=== PATIENT | male | born 1985 | race African-American/Black ===

== ENCOUNTER 2017-12-23 12:56 | Emergency (ER) | payer OTHER ==
[~2017-12-23] VITALS: Ht 188 cm; Wt 122.5 kg
[~2017-12-23 12:56] MED LIST: ARIP1TAB9; NORPTMEDS CO; TRAZ100T2
[2017-12-23 13:10] VITALS: BP 122/84
== END 2017-12-23 14:53 | disposition left against medical advice (07) ==
LOC: ER 12:56
DX: M79.641 Pain in right hand (principal); Z53.21 Procedure and treatment not carried out due to patient leaving prior to being seen by health care provider

== ENCOUNTER 2020-10-18 14:54 | Emergency (ER) | payer OTHER, MEDICAID ==
[~2020-10-18] VITALS: Ht 188 cm; Wt 113.4 kg
[~2020-10-18 14:54] MED LIST changes: -TRAZ100T2; +TRAZ100T3
[2020-10-18 18:50] VITALS: BP 107/65
== END 2020-10-18 20:24 | disposition home or self-care (01) ==
LOC: ER 14:54
DX: L02.412 Cutaneous abscess of left axilla (principal); L02.411 Cutaneous abscess of right axilla; E66.9 Obesity, unspecified; F17.210 Nicotine dependence, cigarettes, uncomplicated; Z68.32 Body mass index [BMI] 32.0-32.9, adult; Z79.899 Other long term (current) drug therapy

== ENCOUNTER 2021-01-10 18:21 | Emergency (ER) | payer OTHER, MEDICAID ==
[~2021-01-10] VITALS: Ht 188 cm; Wt 172.4 kg
[2021-01-10 18:35] VITALS: BP 143/88
[2021-01-10 19:36] LABS: BUN/Creatinine Ratio 11.4; Calcium 7.9 mg/dL (8.5-10.1); Potassium 4.1 mmol/L (3.5-5.1)
== END 2021-01-10 19:46 | disposition home or self-care (01) ==
LOC: ER 18:22
DX: F20.9 Schizophrenia, unspecified (principal); F41.9 Anxiety disorder, unspecified; F32.9 Major depressive disorder, single episode, unspecified; F17.210 Nicotine dependence, cigarettes, uncomplicated; F12.10 Cannabis abuse, uncomplicated; F15.10 Other stimulant abuse, uncomplicated
CPT/HCPCS: 36415; 80048

== ENCOUNTER 2022-08-08 15:22 | Inpatient (IN) | payer OTHER, MEDICAID ==
[~2022-08-08] VITALS: Ht 188 cm; Wt 124.7 kg
[2022-08-08 16:35] LABS: Basophils # (auto) 0.1 10 ^3/uL (0-0.2); Basophils % (auto) 0.6 % (0.0-2.0); Eosinophils # (auto) 0.3 10 ^3/uL (0-0.8); Eosinophils % (auto) 2.6 % (0.0-7.0); Hematocrit 30.2 % (41.0-53.0); Hemoglobin 9.4 g/dL (13.5-17.5); Lymphocytes # (auto) 2.1 10 ^3/uL (0.4-5.4); Mean Corpuscular Hemoglobin 21.9 pg (28.0-32.0); Mean Corpuscular Hgb Conc. 31.2 g/dL (32.0-36.0); Mean Corpuscular Volume 70.1 fL (80.0-100.0); Monocytes # (auto) 0.9 10 ^3/uL (0-1.3); Monocytes % (auto) 9.1 % (0.0-12.0); Neutrophils # (auto) 6.3 10 ^3/uL (1.6-8.6); Neutrophils % (auto) 65.7 % (37.0-80.0); Red Cell Distribution Width 18.9 % (11.8-14.3); White Blood Cell 9.6 10^3/uL (4.4-10.8)
[2022-08-08 16:38] LABS: INR 1.14 (0.9-1.15); Partial Thromboplastin Time 29.3 sec (24.6-33.4)
[2022-08-08 16:43] LABS: Albumin 2.2 g/dL (3.4-5.0); Calcium 8.3 mg/dL (8.5-10.1); Magnesium 2.1 mg/dL (1.6-2.6)
[2022-08-08 16:47] LABS: BUN/Creatinine Ratio 9.2 (10.0-20.0); Bilirubin, Total 0.2 mg/dL (0.2-1.0); Total Protein 8.8 g/dL (6.4-8.2)
[2022-08-08] MEDS ORDERED: HYDROcodone-ACET 5/325MG TAB PO ONE (19:00)
[2022-08-08] MEDS ORDERED: SODIUM CHLORIDE 0.9% 1,000 ML IV ONE (19:00)
[2022-08-08 20:11] LABS: Urine Bacteria NONE SEEN /hpf (None Seen); Urine Blood Negative /uL (Negative); Urine Mucus FEW (None Seen); Urine Specific Gravity 1.024 (1.001-1.035); Urine WBC 5 /hpf (0 - 3)
[2022-08-08 20:22] LABS: Amphetamine Screen, Urine NEGATIVE (NEGATIVE); Barbiturate Scree,Urine NEGATIVE (NEGATIVE); Benzodiazephine Screen, Urine NEGATIVE (NEGATIVE); Cannabinoid Screen, Urine NEGATIVE (NEGATIVE); Cocaine Screen, Urine NEGATIVE (NEGATIVE); Phencyclidine Screen, Urine NEGATIVE (NEGATIVE)
[2022-08-08 20:30] LABS: Opiate Scree,Urine NEGATIVE (NEGATIVE)
[2022-08-08] MEDS ORDERED: DEXTROSE (50%) 50ML SYRG IV PRN (21:00)
[2022-08-08] MEDS ORDERED: MORPHINE SULFATE INJ 2 MG/ml SYRG IV PRN (21:00)
[2022-08-08] MEDS ORDERED: ACETAMINOPHEN 325 MG TAB PO PRN (21:00)
[2022-08-08] MEDS ORDERED: NITROGLYCERIN 0.4 MG SL TAB SL PRN (21:00)
[2022-08-08] MEDS ORDERED: ONDANSETRON HCL 4 MG/2 ML VIAL IV PRN (21:00)
[2022-08-08] MEDS ORDERED: TEMAZEPAM 15 MG CAP PO PRN (21:00)
[2022-08-08] MEDS: ACCU-CHEK COMFORT CURVE STRIP VI SCH (22:26)
[2022-08-08] MEDS: lamoTRIgine 25 MG TAB PO SCH (22:34)
[2022-08-08] MEDS: InsuLIN REG 1unit/0.01ml Soln (100units/ml) SC SCH (22:34)
[2022-08-08] MEDS: ATORVASTATIN 20 MG TAB PO SCH (22:34)
[2022-08-08 22:38] LABS: Cholesterol 88 mg/dL (< 200); HDL Cholesterol 40 mg/dL (40-59); LDL Cholesterol 47 mg/dL (< 100); Triglycerides 52 mg/dL (< 150)
[2022-08-09] MEDS: cefTRIAXone 1GM/50ML D5W 50 ML IV SCH ×3 (04:28→09:06)
[2022-08-09] MEDS: CLINDAMYCIN 600MG IV 50 ML IV SCH ×2 (05:11→06:00)
[2022-08-09 06:44] LABS: BUN/Creatinine Ratio 11.5 (10.0-20.0); Calcium 8.3 mg/dL (8.5-10.1); Potassium 3.8 mmol/L (3.5-5.1)
[2022-08-09] MEDS: ACCU-CHEK COMFORT CURVE STRIP VI SCH ×4 (06:45→21:30)
[2022-08-09] MEDS: InsuLIN REG 1unit/0.01ml Soln (100units/ml) SC SCH ×4 (06:50→21:39)
[2022-08-09] MEDS ORDERED: IOHEXOL 350 MG/ML 100ML IJ ONE (08:05)
[2022-08-09 09:05] VITALS: BP 107/71
[2022-08-09] MEDS: ASPirin 81 mg TAB PO SCH (09:06)
[2022-08-09] MEDS: lamoTRIgine 25 MG TAB PO SCH ×2 (09:06→21:29)
[2022-08-09] MEDS ORDERED: INFLUENZA QUAD 2022-2023 0.5 ML SYRG IM ONE (11:00)
[2022-08-09] MEDS ORDERED: PNEUMOCOCCAL VACC POLYS 25 MCG/0.5 ML VIAL IM ONE (11:00)
[2022-08-09 13:00] VITALS: BP 120/78
[2022-08-09] MEDS ORDERED: VANCOMYCIN PER PHARMACY 0 MG IV SCH (13:15)
[2022-08-09] MEDS ORDERED: VANCOMYCIN 1GM/250ML 250 ML IV ONE ×2 (14:00→16:45)
[2022-08-09 17:00] VITALS: BP 101/71
[2022-08-09] MEDS: ATORVASTATIN 20 MG TAB PO SCH (21:29)
[2022-08-09 22:00] VITALS: BP 108/61
[2022-08-09] MEDS: VANCOMYCIN 1GM/250ML 250 ML IV SCH (23:06)
[2022-08-10 05:00] VITALS: BP 101/52
[2022-08-10] MEDS: VANCOMYCIN 1GM/250ML 250 ML IV SCH ×3 (05:00→16:32)
[2022-08-10] MEDS: ACCU-CHEK COMFORT CURVE STRIP VI SCH ×4 (06:18→21:18)
[2022-08-10] MEDS: InsuLIN REG 1unit/0.01ml Soln (100units/ml) SC SCH ×4 (06:19→21:11)
[2022-08-10 09:00] VITALS: BP 118/85
[2022-08-10] MEDS: lamoTRIgine 25 MG TAB PO SCH ×2 (09:47→21:13)
[2022-08-10] MEDS: cefTRIAXone 1GM/50ML D5W 50 ML IV SCH (09:47)
[2022-08-10] MEDS: ASPirin 81 mg TAB PO SCH (09:47)
[2022-08-10 13:00] VITALS: BP 116/65
[2022-08-10] MEDS ORDERED: traZODone HCL 50 MG TAB PO ONE (13:15)
[2022-08-10 17:00] VITALS: BP 110/76
[2022-08-10] MEDS: ATORVASTATIN 20 MG TAB PO SCH (21:14)
[2022-08-10] MEDS ORDERED: traZODone HCL 50 MG TAB PO SCH (22:00)
[2022-08-10 22:33] VITALS: BP_SYST 101; BP_SYST 142; BP_DIAS 58; BP_DIAS 99
[2022-08-11] MEDS: VANCOMYCIN 1GM/250ML 250 ML IV SCH ×2 (00:13→05:41)
[2022-08-11 05:00] VITALS: BP 128/72
[2022-08-11] MEDS: ACCU-CHEK COMFORT CURVE STRIP VI SCH (06:11)
[2022-08-11] MEDS: InsuLIN REG 1unit/0.01ml Soln (100units/ml) SC SCH (06:13)
== END 2022-08-11 08:58 | disposition left against medical advice (07) | DRG 603 ==
LOC: ER 15:22 → EDBD 15:22 → TELE 21:01 → TELE-WESTW 08-09 08:48
PROVIDERS: ADMIT Nurse Practitioner; ATTEND Family Medicine
DX: L03.112 Cellulitis of left axilla (principal); E87.1 Hypo-osmolality and hyponatremia; N39.0 Urinary tract infection, site not specified; L03.111 Cellulitis of right axilla; D64.9 Anemia, unspecified; E83.51 Hypocalcemia; F17.210 Nicotine dependence, cigarettes, uncomplicated; F20.9 Schizophrenia, unspecified; D63.8 Anemia in other chronic diseases classified elsewhere; E11.65 Type 2 diabetes mellitus with hyperglycemia; F32.A Depression, unspecified; F41.9 Anxiety disorder, unspecified; L02.92 Furuncle, unspecified; R00.0 Tachycardia, unspecified; Z53.29 Procedure and treatment not carried out because of patient's decision for other reasons; R79.89 Other specified abnormal findings of blood chemistry; S41.101A Unspecified open wound of right upper arm, initial encounter; X58.XXXA Exposure to other specified factors, initial encounter; Z79.899 Other long term (current) drug therapy; Z83.3 Family history of diabetes mellitus; Y93.89 Activity, other specified; Y92.89 Other specified places as the place of occurrence of the external cause; Y99.8 Other external cause status; Z71.6 Tobacco abuse counseling; Z91.199 Patient's noncompliance with other medical treatment and regimen due to unspecified reason; R07.89 Other chest pain
CPT/HCPCS: 36415; 71045; 71250; 71275; 74176; 80048; 80053; 80061; 80202; 80307; 81001; 82565; 82728; 82962; 83540; 83550; 83735; 83880; 84484; 85025; 85379; 85610; 85730; 87205; 90686; 93005; 93306; 96360; 96361; G0378; J0696; J1815; J3490

== ENCOUNTER 2024-04-08 18:48 | Inpatient (IN) | payer OTHER, MEDICAID ==
[~2024-04-08] VITALS: Ht 188 cm; Wt 97.5 kg
[~2024-04-08 18:48] MED LIST changes: -ARIP1TAB9; +ARIP30TA2; +TRAZ-228; -TRAZ100T3
--- NOTE | 2024-04-08 19:13 | ECG ---
[facility] Test Date: 2024-04-08 Test Time: 19:09:20 Pat Name: ELMER CARDOZO Department: ER Room: 0275 Gender: M Ent Surgeon: GP : 1985 Requested By: GUERO RIVERA Order Number: [id number] Reading MD: Robert Evans Measurements Intervals [place] Rate: 153 P: 74 AR: 103 QRS: 46 QRSD: 88 T: 268 QT: 319 QTc: 510 Interpretive Statements Sinus tachycardia Nonspecific repol abnormality, diffuse leads Prolonged QT interval Electronically Signed On 04-12-2024 15:42:34 PST by Robert Evans Please click the below link to view image of tracing.
[2024-04-08] MEDS: SODIUM CHLORIDE 0.9% 1,000 ML IV ONE (20:42)
[2024-04-08 21:02] LABS: Basophils # (auto) 0.1 10 ^3/uL (0-0.2); Eosinophils # (auto) 0.1 10 ^3/uL (0-0.8); Hemoglobin 7.4 g/dL (13.5-17.5)
[2024-04-08 21:04] LABS: Basophils % (auto) 0.9 % (0.0-2.0); Hematocrit 24.2 % (41.0-53.0); Lymphocytes # (auto) 1.5 10 ^3/uL (0.4-5.4); Lymphocytes % (auto) 11.8 % (10.0-50.0); Mean Corpuscular Hemoglobin 22.3 pg (28.0-32.0); Mean Corpuscular Hgb Conc. 30.8 g/dL (32.0-36.0); Mean Corpuscular Volume 72.4 fL (80.0-100.0); Monocytes % (auto) 7.5 % (0.0-12.0); Neutrophils % (auto) 78.8 % (37.0-80.0); Platelet Count (auto) 741 10^3/uL (140-450); Red Blood Cells 3.34 10^6/uL (4.5-5.90); White Blood Cell 12.7 10^3/uL (4.4-10.8)
[2024-04-08 21:08] LABS: Alkaline Phosphatase 110 U/L (46-116); Anion Gap 5 (5-15); BUN/Creatinine Ratio 8.6 (10.0-20.0); Calcium 8.8 mg/dL (8.7-10.4); Carbon Dioxide 24 mmol/L (20-31); Chloride 105 mmol/L (98-107); Glucose 105 mg/dL (74-106)
[2024-04-08 21:32] VITALS: PULSE 138; RESP 16; O2SAT 100
[2024-04-08 21:43] LABS: Alanine Aminotransferase < 9 U/L (7-40); Aspartate Aminotransferase 9 U/L (13-40); Bilirubin, Total 0.2 mg/dL (0.2-1.0); Blood Urea Nitrogen 7 mg/dL (9-23); Potassium 3.5 mmol/L (3.5-5.1); Sodium 134 mmol/L (136-145); Total Protein 8.3 g/dL (5.7-8.2)
[2024-04-08 21:44] LABS: Red Cell Distribution Width 20.6 % (11.8-14.3)
[2024-04-08 22:18] VITALS: PULSE 114; RESP 16; O2SAT 95
[2024-04-08 22:20] LABS: Anisocytosis Slight
[2024-04-08 22:21] LABS: Hypochromia Moderate; Platelet Estimate Increased
[2024-04-08 22:22] LABS: Tear Drop Cells FEW
--- NOTE | 2024-04-08 23:16 | ED.PDOC ---
History of Present Illness HPI Comments 88-year-old male brought in by brother. Mother states patient has been acting cough. Patient was previously living in [facility] with a caregiver. Brother states that patient has been lethargic. Patient has lost at least 60 lb over the last three months. Patient was a surgery done three months ago and has been having fatigue and weakness over the last three months. According to the brother patient was having a caregiver that he lived with in [place] but brother recently moved him up the [place] due to concerns of patient was well for her. Patient was sluggish to answer. Patient appears to have a wound to his right axilla from her surgery three months ago. It was believed that he had hydro adenosis repair upon assessment the patient was tachycardic and low blood pressure. Chief Complaint: General Weakness Time Seen by MD: 19:01 Primary Care Provider: NONE Reviewed Notes: Nurses Notes Allergies: Coded Allergies: NO KNOWN ALLERGIES (Unverified , 10/28/12) Home Meds Reported Medications No Reported Medication (NO REPORTED MEDICATION) DARIAN Aldana EA PATIENT HAS NO REPORTED MEDICATIONS 02/03/13 [Alowehe87 Mg] (Abilify) 30 MG TAB No Conflict Check, MG 11/25/12 [Trazodone Yna651 Mg] (Trazodone Hcl) 100 MG TAB No Conflict Check, MG 11/25/12 Information Source: Patient Mode of Arrival: Ambulatory Past Medical History PAST MEDICAL HISTORY: Anxiety, Depression, Schizophrenia Surgical History: Denies all surgeries Family History Family History: Family hx of DM Social History Smoker: Cigarettes, Less Than 1 Pack/Day Alcohol: Occasionally Drugs: Marijuana, Methamphetamine Lives In: Home Constitutional: reports: fever, malaise, weakness; denies: chills, diaphoresis, fatigue, sweats, others EENTM: denies: blurred vision, double vision, ear bleeding, ear discharge, ear drainage, ear pain, ear ringing, eye pain, eye redness, hearing loss, mouth pain, mouth swelling, nasal discharge, nose bleeding, nose congestion, nose pain, photophobia, tearing, throat pain, throat swelling, voice changes, others Respiratory: denies: cough, hemoptysis, orthopnea, SOB at rest, shortness of breath, SOB with excertion, stridor, wheezing, others Cardiovascular: denies: chest pain, dizzy spells, diaphoresis, Dyspnea on exertion, edema, irregular heart beat, left arm pain, lightheadedness, pa lpitations, PND, syncope, others Gastrointestinal: denies: abdomen distended, abdominal pain, blood streaked bowels, constipated, diarrhea, dysphagia, difficulty swallowing, hematemesis, melena, nausea, poor appetite, poor fluid intake, rectal bleeding, rectal pain, vomiting, others Genitourinary: denies: burning, dysuria, flank pain, frequency, hematuria, incontinence, penile discharge, penile sore, pain, testicle pain, testicle swelling, urgency, others Neurological: denies: dizziness, fainting, headache, left sided numbness, left sided weakness, numbness, paresthesia, pre-existing deficit, right sided numbness, right sided weakness, seizure, speech problems, tingling, tremors, weakness, others Integumetry: reports: wounds; denies: bruises, change in color, change in hair/nails, dryness, laceration, lesions, lumps, rash, others Physical Exam General Appearance: Moderate Distress, Normal HEENT: Normal ENT Inspection, Pharynx Normal, TMs Normal Neck: Full Range of Motion, Non-Tender, Normal, Normal Inspection Respiratory: Chest Non-Tender, Lungs Clear, No Accessory Muscle Use, No Respiratory Distress, Normal Breath Sounds Cardiovascular: No Edema, No JVD, No Murmur, No Gallop, Normal Peripheral Pulses, Regular Rate/Rhythm Breast Exam: Deferred Gastrointestinal: No Organomegaly, Non Tender, No Pulsatile Mass, Normal Bowel Sounds, Soft Genitalia: Deferred Pelvic: Deferred Rectal: Deferred Extremities: No calf tenderness, Normal capillary refill, Normal inspection, Normal range of motion, Non-tender, No pedal edema Musculoskeletal : Apperance: Normal Neurologic: Alert, retrieval specialist II-XII nml as Tested, No Motor Deficits, Normal Affect, Normal Mood, No Sensory Deficits Cerebellar Function: Normal Reflexes: Normal Skin: Dry, Normal Color, Warm, Wounds (Large wound under the right axilla measures approximate 20 cm from top to bottom approximate 8-9 cm across. Raw ulcerative type skin. No discharge. No obvious tunneling.) Lymphatic: No Adenopathy Was a procedure done? Was a procedure done?: No Differential Dx Considerations may include: Cellulitis, sepsis, SVT, tachycardia X-Ray, Labs, Meds, VS Vital Signs Date Time Temp Pulse Resp B/P (MAP) Pulse Ox O2 Delivery O2 Flow Rate FiO2 04/08/24 21:32 138 16 102/61 (75) 100 04/08/24 21:32 138 16 100 Room Air* 0 21 04/08/24 19:09 153 04/08/24 19:03 100.0 151 20 108/66 (80) 97 Lab Test 04/08/24 20:39 Range/Units White Blood Count 12.7 H 4.4-10.8 10^3/uL Red Blood Count 3.34 L 4.5-5.90 10^6/uL Hemoglobin 7.4 L 13.5-17.5 g/dL Hematocrit 24.2 L 41.0-53.0 % Mean Corpuscular Volume 72.4 L 80.0-100.0 fL Mean Corpuscular Hemoglobin 22.3 L 28.0-32.0 pg Mean Corpuscular Hemoglobin Concent 30.8 L 32.0-36.0 g/dL Red Cell Distribution Width 20.6 H 11.8-14.3 % Platelet Count 741 H 140-450 10^3/uL Mean Platelet Volume 6.1 L 6.9-10.8 fL Neutrophils (%) (Auto) 78.8 37.0-80.0 % Lymphocytes (%) (Auto) 11.8 10.0-50.0 % Monocytes (%) (Auto) 7.5 0.0-12.0 % Eosinophils (%) (Auto) 1.0 0.0-7.0 % Basophils (%) (Auto) 0.9 0.0-2.0 % Neutrophils # (Auto) 10.0 H 1.6-8.6 10 ^3/uL Lymphocytes # (Auto) 1.5 0.4-5.4 10 ^3/uL Monocytes # (Auto) 1.0 0-1.3 10 ^3/uL Eosinophils # (Auto) 0.1 0-0.8 10 ^3/uL Basophils # (Auto) 0.1 0-0.2 10 ^3/uL Nucleated Red Blood Cells 0.0 % Platelet Estimate Increased Hypochromasia (manual) Moderate Anisocytosis (manual) Slight Microcytosis Moderate Tear Drop Cells Few Sodium Level 134 L 136-145 mmol/L Potassium Level 3.5 3.5-5.1 mmol/L Chloride Level 105 98-107 mmol/L Carbon Dioxide Level 24 20-31 mmol/L Anion Gap 5 5-15 Blood Urea Nitrogen 7 L 9-23 mg/dL Creatinine 0.81 0.700-1.30 mg/dL Glomerular Filtration Rate Calc 115 >90 mL/min BUN/Creatinine Ratio 8.6 L 10.0-20.0 Serum Glucose 105 74-106 mg/dL Lactic Acid Level 1.6 0.4-2.0 mmol/L Calcium Level 8.8 8.7-10.4 mg/dL Total Bilirubin 0.2 0.2-1.0 mg/dL Aspartate Amino Transferase (AST) 9 L 13-40 U/L Alanine Aminotransferase (ALT) < 9 7-40 U/L Alkaline Phosphatase 110 46-116 U/L Total Protein 8.3 H 5.7-8.2 g/dL Albumin 3.0 L 3.2-4.8 g/dL Current Medications Medications (Trade) Dose Ordered Sig/Angie Route Start Time Stop Time Status Last Admin Sodium Chloride 1,000 ml @ 1,000 mls/hr Q1H ONCE IV 04/08/24 20:30 04/08/24 21:29 DC 04/08/24 20:42 X-Ray, Labs, Meds, VS Comment Patient will be admitted for cellulitis of the right axilla, possible chronic wound post surgery Patient will be started on Zosyn Time of 1ST Reevaluation: 23:16 Reevaluation 1ST: Unchanged Patient Education/Counseling: Diagnosis, Treatment Family Education/Counseling: Diagnosis Departure 1 Departure Time of Disposition: 23:15 Impression: Primary Impression: Anemia Qualified Codes: D64.9 - Anemia, unspecified Additional Impression: Cellulitis Qualified Codes: L03.90 - Cellulitis, unspecified Disposition: 09 ADMITTED INPATIENT Condition: Guarded Discharged With: Self Critical Care Note Critical Care Time?: No Stability Stability form required: No Heart Score Heart Score: Heart Score Response (Comments) Value History N/A 0 EKG N/A 0 Age N/A 0 Risk Factors N/A 0 Troponin N/A 0 Total 0 GUERO RIVERA Apr 08, 2024 23:16
--- NOTE | 2024-04-08 23:17 | DVH ---
Procedure: CT CHEST WITHOUT CONTRAST Reason for study/Clinical History: wound Comparison Study: None available at time of dictation. Exam Date: 04/08/2024 10:48 PM TECHNIQUE: Multidetector CT of the chest was performed from the lung apices to the upper abdomen with out the use of intravenous contract. Axial, coronal and sagittal multiplanar reformats were performed . Radiation Dose Information: CT Dose: CTDI volume is 17.1 mGy. Dose-length product is 679.49 mGy*cm The dose indicators for CT are the volume Computed Tomography (CT) Dose Index (CTDIvol) and the Dose Length Product (DLP), and are measured in units of mGy and mGy-cm, respectively. These indicators are not patient dose, but values generated from the CT scanner acquisition factors. The report includes radiation exposure data for exposures received during this examination. FINDINGS: Lower neck: Normal thyroid. Lungs: No focal consolidation, pleural effusion or pneumothorax. Heart/Vascular Structures: Normal heart size. Small pericardial effusion Lymph Nodes: No adenopathy Pleura: Trace bilateral pleural effusions. Musculoskeletal: No acute osseous abnormality. Soft tissues: Superficial wound is seen in the left lateral thorax with associated fat stranding and foci of air, suggestive of infectious or inflammatory process. No drainable abscess is identified. Upper abdomen: Limited portions of the upper abdomen are unremarkable. IMPRESSION: 1. Superficial wound is seen in the left lateral thorax with associated fat stranding and foci of air , suggestive of infectious / inflammatory process. No drainable abscess is identified. 2. Small pericardial effusion. 3. Trace bilateral pleural effusions. Radiation optimization: All CT scans at this facility use at least one of these dose optimization karl hniques: automated exposure control mA and/or kV adjustment per patient size (includes targeted exam s where dose is matched to clinical indication) or iterative reconstruction.
[2024-04-09] VITALS (12 sets, daily range): BP systolic 111–125; BP diastolic 73–86; PULSE 84–108; RESP 13–29; TEMP 97.8–98.9; O2SAT 94–97
[2024-04-09] MEDS: PIPERACILLIN-TAZOB 3.375GM 100 ML IV ONE (00:47)
[2024-04-09] MEDS: LORazepam 0.5 MG TAB PO ONE (03:42)
[2024-04-09] MEDS ORDERED: ONDANSETRON HCL 4 MG/2 ML VIAL IV PRN (04:00)
[2024-04-09] MEDS ORDERED: DEXTROSE (50%) 50ML SYRG IV PRN (04:00)
[2024-04-09] MEDS ORDERED: ACETAMINOPHEN 325 MG TAB PO PRN (04:00)
[2024-04-09] MEDS ORDERED: HYDROcodone-ACET 5/325MG TAB PO PRN (04:00)
--- NOTE | 2024-04-09 04:18 | DVHHP2 ---
History of Present Illness Reason for Visit: Generalized weakness History of Present Illness 38-year-old male presents for evaluation of generalized weakness. Patient was brought in by family members after noting patient becoming progressively weaker over the past two months. Patient also reports having a wound to his right a xilla for which home health visits in for treatment. Patient with a history of hidradenitis suppurativa status post surgery two right axilla three months ago. Denies fever or chills. No other acute complaints reported. Past Medical History Schizophrenia, depression, diabetes mellitus Past Surgical History Right axilla surgery Family History Diabetes mellitus Smoke: <1 pack per day ALCOHOL: occassional Drugs: Marijuana, Other (Methamphetamine) Review of Systems Review of Systems Review of systems are currently negative otherwise addressed in HPI. Allergies: Coded Allergies: NO KNOWN ALLERGIES (Unverified , 10/28/12) Medications Current Medications Medications Dose Ordered Sig/Angie Route Start Time Stop Time Status Last Admin Dose Admin Risperidone 0.5 mg DAILY PO 04/09/24 10:00 Divalproex Sodium 250 mg BID PO 04/09/24 10:00 Piperacillin Sod/ Tazobactam Sod 100 ml @ 25 mls/hr Q6HR IV 04/09/24 06:00 Diagnostic Test (Pha) 1 strip ACHS 04/09/24 07:00 Insulin Human Regular ACHS SC 04/09/24 07:00 Dextrose 50 ml UD PRN IV 04/09/24 04:00 Acetaminophen/ Hydrocodone Bitart 1 tab Q4HP PRN PO 04/09/24 04:00 Ondansetron HCl 4 mg Q4HP PRN IV 04/09/24 04:00 Acetaminophen 650 mg Q6HP PRN PO 04/09/24 04:00 Exam Vital Signs Vital Signs Date Time Temp Pulse Resp B/P (MAP) Pulse Ox O2 Delivery O2 Flow Rate FiO2 04/09/24 02:00 104 16 111/62 (78) 95 04/08/24 22:30 97.5 97.5 04/08/24 22:18 Room Air* 0 21 Exam Gen: 38-year-old male in mild distress. Skin: Warm, dry, normal color and texture, right axilla healing wound with bloody discharge HEENT: Normocephalic atraumatic, mucous membranes moist and pink. Neck: Cervical and supraclavicular nodes normal without enlargement, trachea is midline, thyroid gland is normal without masses. Pulmonary: Clear to auscultation and percussion bilaterally. Cardiac: Regular rate and rhythm. No murmur Abdomen: Soft, nontender, nondistended, bowel sounds present all 4 quadrants, no guarding, no rigidity, no organomegaly. Extremities: No cyanosis, clubbing, no edema Neuro: Cranial nerves II through XII grossly intact, normal affect and speech, no focal motor deficits. Labs/Xrays ORDERING PHYSICIAN: GUERO RIVERA PROCEDURE(s): CX2CT - CHEST WITHOUT CONTRAST REASON: wound ORDER NUMBER(s): [id number], ACCESSION NUMBER(s): [id number] Procedure: CT CHEST WITHOUT CONTRAST Reason for study/Clinical History: wound Comparison Study: None available at time of dictation. Exam Date: 04/08/2024 10:48 PM TECHNIQUE: Multidetector CT of the chest was performed from the lung apices to the upper abdomen without the use of intravenous contract. Axial, coronal and sagittal multiplanar reformats were performed. Radiation Dose Information: CT Dose: CTDI volume is 17.1 mGy. Dose-length product is 679.49 mGy*cm The dose indicators for CT are the volume Computed Tomography (CT) Dose Index (CTDIvol) and the Dose Length Product (DLP), and are measured in units of mGy and mGy-cm, respectively. These indicators are not patient dose, but values generated from the CT scanner acquisition factors. The report includes radiation exposure data for exposures received during this examination. FINDINGS: Lower neck: Normal thyroid. Lungs: No focal consolidation, pleural effusion or pneumothorax. Heart/Vascular Structures: Normal heart size. Small pericardial effusion Lymph Nodes: No adenopathy Pleura: Trace bilateral pleural effusions. Musculoskeletal: No acute osseous abnormality. Soft tissues: Superficial wound is seen in the left lateral thorax with associated fat stranding and foci of air, suggestive of infectious or inflammatory process. No drainable abscess is identified. Upper abdomen: Limited portions of the upper abdomen are unremarkable. IMPRESSION: 1. Superficial wound is seen in the left lateral thorax with associated fat stranding and foci of air, suggestive of infectious / inflammatory process. No drainable abscess is identified. 2. Small pericardial effusion. 3. Trace bilateral pleural effusions. Radiation optimization: All CT scans at this facility use at least one of these dose optimization techniques: automated exposure control mA and/or kV adjustment per patient size (includes targeted exams where dose is matched to clinical indication) or iterative reconstruction. Labs Test 04/08/24 20:39 Range/Units White Blood Count 12.7 H 4.4-10.8 10^3/uL Red Blood Count 3.34 L 4.5-5.90 10^6/uL Hemoglobin 7.4 L 13.5-17.5 g/dL Hematocrit 24.2 L 41.0-53.0 % Mean Corpuscular Volume 72.4 L 80.0-100.0 fL Mean Corpuscular Hemoglobin 22.3 L 28.0-32.0 pg Mean Corpuscular Hemoglobin Concent 30.8 L 32.0-36.0 g/dL Red Cell Distribution Width 20.6 H 11.8-14.3 % Platelet Count 741 H 140-450 10^3/uL Mean Platelet Volume 6.1 L 6.9-10.8 fL Neutrophils (%) (Auto) 78.8 37.0-80.0 % Lymphocytes (%) (Auto) 11.8 10.0-50.0 % Monocytes (%) (Auto) 7.5 0.0-12.0 % Eosinophils (%) (Auto) 1.0 0.0-7.0 % Basophils (%) (Auto) 0.9 0.0-2.0 % Neutrophils # (Auto) 10.0 H 1.6-8.6 10 ^3/uL Lymphocytes # (Auto) 1.5 0.4-5.4 10 ^3/uL Monocytes # (Auto) 1.0 0-1.3 10 ^3/uL Eosinophils # (Auto) 0.1 0-0.8 10 ^3/uL Basophils # (Auto) 0.1 0-0.2 10 ^3/uL Nucleated Red Blood Cells 0.0 % Platelet Estimate Increased Hypochromasia (manual) Moderate Anisocytosis (manual) Slight Microcytosis Moderate Tear Drop Cells Few Sodium Level 134 L 136-145 mmol/L Potassium Level 3.5 3.5-5.1 mmol/L Chloride Level 105 98-107 mmol/L Carbon Dioxide Level 24 20-31 mmol/L Anion Gap 5 5-15 Blood Urea Nitrogen 7 L 9-23 mg/dL Creatinine 0.81 0.700-1.30 mg/dL Glomerular Filtration Rate Calc 115 >90 mL/min BUN/Creatinine Ratio 8.6 L 10.0-20.0 Serum Glucose 105 74-106 mg/dL Lactic Acid Level 1.6 0.4-2.0 mmol/L Calcium Level 8.8 8.7-10.4 mg/dL Total Bilirubin 0.2 0.2-1.0 mg/dL Aspartate Amino Transferase (AST) 9 L 13-40 U/L Alanine Aminotransferase (ALT) < 9 7-40 U/L Alkaline Phosphatase 110 46-116 U/L Total Protein 8.3 H 5.7-8.2 g/dL Albumin 3.0 L 3.2-4.8 g/dL Assessment/Plan Assessment/Plan Assessment Right axilla wound Cellulitis Schizophrenia Anemia Plan Admit the patient to [facility] to the hospitalist Wound consult Zosyn Resume home medications Continue treatment per orders. Plan discussed with: Patient My Orders Orders - KARLA SO Procedure Category Date Status Time * Wound Consult CONS 04/09/24 Transmitted Type And Screen BBK 04/09/24 Logged 03:54 Complete Blood Count LAB 04/09/24 Logged 03:54 Basic Metabolic Panel LAB 04/09/24 Logged 03:54 Risperidone Tablet PHA 04/09/24 In Process (Risperdal Tablet) 10:[address] Tablet PHA 04/09/24 In Process (Depakote "Dr" Tabl 10:00 Consistent DIET 04/09/24 Transmitted Carb(Ccho)Diabetes Breakfast Piperacillin-Tazob PHA 04/09/24 In Process 3.375gm (Zosyn 3.375g 06:00 Glucose Blood PHA 04/09/24 In Process (Accu-Chek Comfort 07:00 Insulin R (Human) PHA 04/09/24 In Process (Insulin R) 07:00 Dextrose 50% Syringe PHA 04/09/24 In Process 04:00 Admit ADMIT 04/09/24 Transmitted 03:54 Hydrocodone-Acet PHA 04/09/24 In Process 5/325mg Tab ([place] 04:00 Ondansetron Hcl PHA 04/09/24 In Process (Zofran) 04:00 Condition: Stable MAGGIE 04/09/24 In Process 03:54 Acetaminophen Tablet PHA 04/09/24 In Process (Tylenol Tablet) 04:00 Bedrest With Bathroom MAGGIE 04/09/24 In Process Privileg 03:54 Date of Service: Apr 09, 2024 Billing Provider: KARLA SO Common Visit Codes: [id number] INP/OBS CARE (MOD) KARLA SO Apr 09, 2024 04:17
[2024-04-09 04:52] LABS: Urine Bacteria None Seen /hpf (None Seen)
[2024-04-09 05:06] LABS: Urine Blood Negative /uL (Negative); Urine Clarity Clear (Clear); Urine Color Yellow (Yellow); Urine Mucus FEW (None Seen); Urine Protein, UAD TRACE (Negative); Urine Squamous Epithelial Cell FEW /hpf (<5); Urine Urobilinogen Normal (Negative); Urine WBC 3 /hpf (0 - 3)
[2024-04-09 05:32] LABS: Chloride 106 mmol/L (98-107); Sodium 136 mmol/L (136-145)
[2024-04-09 05:33] LABS: Anion Gap 8 (5-15); Carbon Dioxide 22 mmol/L (20-31)
[2024-04-09 05:36] LABS: Basophils # (auto) 0.1 10 ^3/uL (0-0.2); Basophils % (auto) 0.7 % (0.0-2.0); Eosinophils # (auto) 0.2 10 ^3/uL (0-0.8); Eosinophils % (auto) 1.9 % (0.0-7.0); Hematocrit 21.1 % (41.0-53.0); Lymphocytes # (auto) 1.9 10 ^3/uL (0.4-5.4); Lymphocytes % (auto) 17.7 % (10.0-50.0); Mean Corpuscular Hemoglobin 22.6 pg (28.0-32.0); Mean Corpuscular Hgb Conc. 31.4 g/dL (32.0-36.0); Mean Corpuscular Volume 71.9 fL (80.0-100.0); Monocytes # (auto) 1.1 10 ^3/uL (0-1.3); Monocytes % (auto) 10.4 % (0.0-12.0); Neutrophils # (auto) 7.3 10 ^3/uL (1.6-8.6); Neutrophils % (auto) 69.3 % (37.0-80.0); Platelet Count (auto) 617 10^3/uL (140-450); Red Blood Cells 2.93 10^6/uL (4.5-5.90); White Blood Cell 10.5 10^3/uL (4.4-10.8)
[2024-04-09 05:37] LABS: Hemoglobin 6.6 g/dL (13.5-17.5); Red Cell Distribution Width 20.3 % (11.8-14.3)
[2024-04-09 05:38] LABS: BUN/Creatinine Ratio 8.8 (10.0-20.0); Glucose 100 mg/dL (74-106)
[2024-04-09 05:52] LABS: Blood Urea Nitrogen 6 mg/dL (9-23); Calcium 8.1 mg/dL (8.7-10.4); Potassium 3.1 mmol/L (3.5-5.1)
[2024-04-09] MEDS ORDERED: PIPERACILLIN-TAZOB 3.375GM 100 ML IV SCH (06:00)
[2024-04-09] MEDS: PIPERACILLIN-TAZOB 3.375GM 100 ML IV SCH (06:33)
[2024-04-09] MEDS: ACCU-CHEK COMFORT CURVE STRIP VI SCH ×2 (06:46→23:56)
[2024-04-09] MEDS: InsuLIN REG 1unit/0.01ml Soln (100units/ml) SC SCH ×2 (06:46→23:55)
[2024-04-09] MEDS: POTASSIUM CHL 20 Meq TABLET PO ONE (08:22)
[2024-04-09] MEDS: risperiDONE 1 MG TAB PO SCH (10:06)
[2024-04-09] MEDS ORDERED: CLINIMIX PER PHARMACY 0 ML IV SCH (17:45)
--- NOTE | 2024-04-09 18:09 | DVHPN2 ---
Subjective Denies any symptoms Reviewed: Care Plan, H&P, Labs, Medications, Previous Orders Changes from previous H/P or p: No Changes General: Per HPI Objective Vitals Vital Signs Date Time Temp Pulse Resp B/P (MAP) Pulse Ox O2 Delivery O2 Flow Rate FiO2 04/09/24 17:30 97.8 101 18 125/86 (99) 94 97.8 04/09/24 17:10 Room Air* 0 21 Intake/Output Intake and Output 04/09/24 07:00 Intake Total 1100 ml Balance 1100 ml IV Total 1100 ml General Appearance: Alert, Oriented X3, Cooperative, No acute distress HEENT: Atraumatic, PERRLA Cardiovascular: Normal S1, Normal S2 Abdomen: Normal bowel sounds, Soft, No tenderness, No hepatospenomegaly, No masses Neuro: Normal gait, Normal speech Skin: Wounds (See nurse notes and pictures) Psych/Mental Status: Mental status NL, Mood NL Medications Current Medications Medications Dose Ordered Sig/Angie Route Start Time Stop Time Status Last Admin Dose Admin Risperidone 0.5 mg DAILY PO 04/09/24 10:00 04/09/24 10:06 0.5 MG Divalproex Sodium 250 mg BID PO 04/09/24 10:00 04/09/24 10:06 250 MG Diagnostic Test (Pha) 1 strip ACHS 04/09/24 07:00 04/09/24 17:35 1 STRIP Insulin Human Regular ACHS SC 04/09/24 07:00 Dextrose 50 ml UD PRN IV 04/09/24 04:00 Acetaminophen/ Hydrocodone Bitart 1 tab Q4HP PRN PO 04/09/24 04:00 Ondansetron HCl 4 mg Q4HP PRN IV 04/09/24 04:00 Acetaminophen 650 mg Q6HP PRN PO 04/09/24 04:00 Piperacillin Sod/ Tazobactam Sod 100 ml @ 25 mls/hr Q6HR IV 04/09/24 06:00 04/09/24 12:40 25 MLS/HR Amino Acids 0 ml @ 0 mls/hr PER PHARMACY IV 04/09/24 17:45 UNV Saccharomyces Boulardii 250 mg DAILY PO 04/10/24 10:00 Laboratory Results Laboratory Tests 04/09/24 05:12 Chemistry Test 04/08/24 20:39 04/09/24 05:12 Albumin 3.0 g/dL (3.2-4.8) L Calcium Level 8.8 mg/dL (8.7-10.4) 8.1 mg/dL (8.7-10.4) L Total Protein 8.3 g/dL (5.7-8.2) H LFT Test 04/08/24 20:39 Alanine Aminotransferase (ALT) < 9 U/L (7-40) Alkaline Phosphatase 110 U/L (46-116) Aspartate Amino Transferase (AST) 9 U/L (13-40) L Total Bilirubin 0.2 mg/dL (0.2-1.0) Urinalysis Test 04/09/24 04:29 Urine Color Yellow (Yellow) Urine Clarity Clear (Clear) Urine pH 6.0 (5.0-9.0) Urine Specific [place] 1.020 (1.001-1.035) Urine Protein Trace (Negative) H Urine Ketones Negative (Negative) Urine Blood Negative /uL (Negative) Urine Nitrite Negative (Negative) Urine Bilirubin Negative (Negative) Urine Urobilinogen Normal mg/dL (Negative) Urine Leukocyte Esterase Negative /uL (Negative) Urine RBC <1 /hpf (0 - 3) Urine WBC 3 /hpf (0 - 3) Urine Squamous Epithelial Cells Few /hpf (<5) Urine Bacteria None seen /hpf (None Seen) Urine Mucus Few (None Seen) Urine Glucose 3+ mg/dL (Normal) H Labs and/or images reviewed: Labs reviewed by me, Image(s) reviewed by me Assessment/Plan Assessment/Plan Impression: -sepsis -right axillary wound secondary to hydradenitis suppurativa -schizophrenia -depression -diabetes mellitus Plan: -continue Zosyn, and clindamycin -continue risperidone -regular insulin sliding scale -pain management -add Florastor -repeat labs in a.m. Total time spent with patient discussing and formulating plan of care: 35 minutes. This medical document was created using an electronic medical record system with [employer] dictation system. Although this document has been carefully reviewed, there may still be some phonetic and typographical errors. These areas are purely typographical due to imperfections of the software programs, and do not reflect any compromise in the patient's medical care. Plan discussed with: Patient, Other (RN) My Orders Orders - GRISELDA MCMILLAN [employer] Procedure Category Date Status Time Clinimix Per Pharmacy PHA 04/09/24 Logged 17:45 Basic Metabolic Panel LAB 04/10/24 Verified 04:00 Florastor (S. PHA 04/10/24 In Process Boulardii) (Florastor) 10:00 Date of Service: Apr 09, 2024 Billing Provider: GRISELDA MCMILLAN NP Common Visit Codes: [id number] INP/OBS CARE(HIGH) GRISELDA MCMILLAN NP Apr 09, 2024 18:09
[2024-04-09 18:51] LABS: Phosphorus 4.5 mg/dL (2.4-5.1)
[2024-04-09 19:26] LABS: Basophils # (auto) 0.1 10 ^3/uL (0-0.2); Basophils % (auto) 0.7 % (0.0-2.0); Eosinophils # (auto) 0.3 10 ^3/uL (0-0.8); Hematocrit 28.7 % (41.0-53.0); Hemoglobin 9.1 g/dL (13.5-17.5); Lymphocytes # (auto) 1.7 10 ^3/uL (0.4-5.4); Lymphocytes % (auto) 17.2 % (10.0-50.0); Mean Corpuscular Hemoglobin 23.4 pg (28.0-32.0); Mean Corpuscular Hgb Conc. 31.8 g/dL (32.0-36.0); Mean Corpuscular Volume 73.6 fL (80.0-100.0); Monocytes # (auto) 0.7 10 ^3/uL (0-1.3); Monocytes % (auto) 6.8 % (0.0-12.0); Neutrophils % (auto) 72.3 % (37.0-80.0); Nucleated Red Blood Cells % 0.1 %; Platelet Count (auto) 696 10^3/uL (140-450); White Blood Cell 9.6 10^3/uL (4.4-10.8)
[2024-04-09] MEDS: MORPHINE SULFATE INJ 2 MG/ml SYRG IV PRN (19:45)
[2024-04-09] MEDS: AMINO ACID INFUSION IN D10W 1,000 ML IV SCH (21:41)
[2024-04-10] VITALS (7 sets, daily range): BP systolic 105–116; BP diastolic 53–70; PULSE 83–108; RESP 16–21; TEMP 97.8–98.4; O2SAT 94–98
[2024-04-10] MEDS ORDERED: DEXTROSE (50%) 50ML SYRG IV SCH
[2024-04-10 07:58] LABS: Alkaline Phosphatase 112 U/L (46-116); Anion Gap 6 (5-15); Carbon Dioxide 26 mmol/L (20-31); Chloride 105 mmol/L (98-107); Magnesium 1.8 mg/dL (1.6-2.6); Potassium 3.5 mmol/L (3.5-5.1); Sodium 137 mmol/L (136-145)
[2024-04-10 07:59] LABS: Phosphorus 4.5 mg/dL (2.4-5.1); Total Protein 7.2 g/dL (5.7-8.2)
[2024-04-10 08:00] LABS: Alanine Aminotransferase < 9 U/L (7-40); Albumin 2.7 g/dL (3.2-4.8); Aspartate Aminotransferase < 8 U/L (13-40); BUN/Creatinine Ratio 7.7 (10.0-20.0); Bilirubin, Total 0.2 mg/dL (0.2-1.0); Blood Urea Nitrogen < 5 mg/dL (9-23); Calcium 8.4 mg/dL (8.7-10.4); Glucose 128 mg/dL (74-106)
--- NOTE | 2024-04-10 09:50 | DVHPN2 ---
Subjective Denies any symptoms Reviewed: Care Plan, H&P, Labs, Medications, Previous Orders Changes from previous H/P or p: No Changes General: Per HPI Objective Vitals Vital Signs Date Time Temp Pulse Resp B/P (MAP) Pulse Ox O2 Delivery O2 Flow Rate FiO2 04/10/24 05:00 98.1 88 19 114/53 (73) 94 98.1 04/09/24 20:00 Room Air* 0 21 Intake/Output Intake and Output 04/10/24 07:00 Intake Total 2525 ml Output Total 1300 ml Balance 1225 ml Intake Oral 1000 ml IV Total 325 ml Tube Feeding 0 ml Blood Product 1200 ml Other 0 ml Output Urine Total 1300 ml Stool Total 0 ml Urine/Stool Mix 0 ml Gastric Drainage Total 0 ml Emesis 0 ml Chest Tube Drainage Total 0 ml Drainage Total 0 ml Other 0 ml General Appearance: Alert, Oriented X3, Cooperative, No acute distress HEENT: Atraumatic, PERRLA Lungs: Clear to auscultation, Normal air movement Cardiovascular: Normal S1, Normal S2 Abdomen: Normal bowel sounds, Soft, No tenderness, No hepatospenomegaly, No masses Neuro: Normal gait, Normal speech Skin: Wounds (See nurse notes and pictures) Psych/Mental Status: Mental status NL, Mood NL Medications Current Medications Medications Dose Ordered Sig/Angie Route Start Time Stop Time Status Last Admin Dose Admin Risperidone 0.5 mg DAILY PO 04/09/24 10:00 04/09/24 10:06 0.5 MG Divalproex Sodium 250 mg BID PO 04/09/24 10:00 04/09/24 21:32 250 MG Insulin Human Regular ACHS SC 04/09/24 07:00 Acetaminophen/ Hydrocodone Bitart 1 tab Q4HP PRN PO 04/09/24 04:00 Ondansetron HCl 4 mg Q4HP PRN IV 04/09/24 04:00 Acetaminophen 650 mg Q6HP PRN PO 04/09/24 04:00 Piperacillin Sod/ Tazobactam Sod 100 ml @ 25 mls/hr Q6HR IV 04/09/24 06:00 04/10/24 06:13 25 MLS/HR Amino Acids 0 ml @ 0 mls/hr PER PHARMACY IV 04/09/24 17:45 Saccharomyces Boulardii 250 mg DAILY PO 04/10/24 10:00 Morphine Sulfate 2 mg Q6HPRN PRN IV 04/09/24 18:15 04/09/24 19:45 2 MG Amino Acids/ Electrolytes/ Dextrose 1,000 ml @ 41 mls/hr DAILY@2200 IV 04/09/24 22:00 Diagnostic Test (Pha) 1 strip Q6HR 04/10/24 00:00 04/10/24 06:16 1 STRIP Insulin Human Regular FOLLOW SLIDING SCALE Q6HR SC 04/10/24 00:00 Dextrose 50 ml UD IV 04/10/24 00:00 Laboratory Results Laboratory Tests 04/09/24 18:57 04/10/24 06:58 Chemistry Test 04/10/24 06:58 Albumin 2.7 g/dL (3.2-4.8) L Calcium Level 8.4 mg/dL (8.7-10.4) L Magnesium Level 1.8 mg/dL (1.6-2.6) Phosphorus Level 4.5 mg/dL (2.4-5.1) Total Protein 7.2 g/dL (5.7-8.2) LFT Test 04/10/24 06:58 Alanine Aminotransferase (ALT) < 9 U/L (7-40) Alkaline Phosphatase 112 U/L (46-116) Aspartate Amino Transferase (AST) < 8 U/L (13-40) L Total Bilirubin 0.2 mg/dL (0.2-1.0) Urinalysis Test 04/09/24 04:29 Urine Color Yellow (Yellow) Urine Clarity Clear (Clear) Urine pH 6.0 (5.0-9.0) Urine Specific [place] 1.020 (1.001-1.035) Urine Protein Trace (Negative) H Urine Ketones Negative (Negative) Urine Blood Negative /uL (Negative) Urine Nitrite Negative (Negative) Urine Bilirubin Negative (Negative) Urine Urobilinogen Normal mg/dL (Negative) Urine Leukocyte Esterase Negative /uL (Negative) Urine RBC <1 /hpf (0 - 3) Urine WBC 3 /hpf (0 - 3) Urine Squamous Epithelial Cells Few /hpf (<5) Urine Bacteria None seen /hpf (None Seen) Urine Mucus Few (None Seen) Urine Glucose 3+ mg/dL (Normal) H Microbiology Microbiology Date/Time Source Procedure Growth Status 04/08/24 22:05 Blood Blood Culture - Preliminary NO GROWTH AFTER 24 HOURS OF INCUBATION. Resulted Labs and/or images reviewed: Labs reviewed by me, Image(s) reviewed by me Assessment/Plan Assessment/Plan Impression: -sepsis -right axillary wound secondary to hydradenitis suppurativa -schizophrenia -depression -diabetes mellitus Plan: Events: Patient's H and H holding. White blood cell count improving. Continue IV antibiotic therapy at this time. -iron supplementation -continue Zosyn, and clindamycin -continue risperidone -regular insulin sliding scale -pain management -add Florastor -repeat labs in a.m. Total time spent with patient discussing and formulating plan of care: 35 minutes. This medical document was created using an electronic medical record system with [employer] dictation system. Although this document has been carefully reviewed, there may still be some phonetic and typographical errors. These areas are purely typographical due to imperfections of the software programs, and do not reflect any compromise in the patient's medical care. Plan discussed with: Patient, Other (RN) My Orders Orders - GRISELDA MCMILLAN NP Procedure Category Date Status Time Clinimix Per Pharmacy PHA 04/09/24 In Process 17:45 Florastor (S. PHA 04/10/24 In Process Boulardii) (Florastor) 10:00 Clinimix Per Pharmacy MAGGIE 04/09/24 In Process 22:00 * Dietary Consult CONS 04/09/24 Transmitted 18:13 Amino Acid Infusion PHA 04/09/24 In Process In D10w (Clinimix 4. 22:00 Glucose Blood PHA 04/10/24 In Process (Accu-Chek Comfort 00:00 Insulin R (Human) PHA 04/10/24 In Process (Insulin R) 00:00 Dextrose 50% Syringe PHA 04/10/24 In Process 00:00 Cleanse Wound With Ns MAGGIE 04/09/24 In Process 14:00 Ferrous Sulfate Tablet PHA 04/10/24 Verified 18:00 Hydrocodone-Acet PHA 04/10/24 Verified 5/325mg Tab ([place] 10:00 Date of Service: Apr 10, 2024 Billing Provider: GRISELDA MCMILLAN NP Common Visit Codes: [id number] INP/OBS CARE(HIGH) GRISELDA MCMILLAN NP Apr 10, 2024 09:50
[2024-04-10] MEDS: FLORASTOR (S. BOULARDII) 250 MG CAP PO SCH (10:49)
[2024-04-10] MEDS: HYDROcodone-ACET 5/325MG TAB PO PRN (15:37)
[2024-04-10] MEDS: FERROUS SULFATE 325mg EC TAB PO SCH (17:35)
[2024-04-10] MEDS: CLINDAMYCIN 300MG IV 50 ML IV SCH (17:36)
[2024-04-10] MEDS ORDERED: BACL10TA PO (17:42)
[2024-04-10] MEDS ORDERED: PALI234I IM (17:42)
[2024-04-10] MEDS ORDERED: DIVA1TAB58 PO (17:42)
[2024-04-10] MEDS ORDERED: FERR324T16 PO (17:42)
[2024-04-10] MEDS ORDERED: LAMO25TA27 PO (17:42)
[2024-04-10] MEDS ORDERED: RIS1T PO (17:42)
[2024-04-11] VITALS (7 sets, daily range): BP systolic 114–120; BP diastolic 66–81; PULSE 71–87; RESP 16–18; TEMP 97.8–98.9; O2SAT 95–98
[2024-04-11 07:30] LABS: Basophils # (auto) 0 10 ^3/uL (0-0.2); Basophils % (auto) 0.1 % (0.0-2.0); Eosinophils # (auto) 0.3 10 ^3/uL (0-0.8); Eosinophils % (auto) 3.7 % (0.0-7.0); Hematocrit 27.8 % (41.0-53.0); Hemoglobin 8.7 g/dL (13.5-17.5); Lymphocytes # (auto) 1.7 10 ^3/uL (0.4-5.4); Lymphocytes % (auto) 19.9 % (10.0-50.0); Mean Corpuscular Hemoglobin 23.2 pg (28.0-32.0); Mean Corpuscular Hgb Conc. 31.3 g/dL (32.0-36.0); Mean Corpuscular Volume 74.1 fL (80.0-100.0); Monocytes # (auto) 0.6 10 ^3/uL (0-1.3); Monocytes % (auto) 6.9 % (0.0-12.0); Neutrophils % (auto) 69.4 % (37.0-80.0); Nucleated Red Blood Cells % 0.1 %; Platelet Count (auto) 647 10^3/uL (140-450); Red Blood Cells 3.76 10^6/uL (4.5-5.90); Red Cell Distribution Width 21.2 % (11.8-14.3); White Blood Cell 8.7 10^3/uL (4.4-10.8)
--- NOTE | 2024-04-11 20:51 | DVHPN2 ---
Subjective in bed resting Reviewed: Care Plan, H&P, Labs, Medications, Previous Orders Changes from previous H/P or p: No Changes General: Per HPI Objective Vitals Vital Signs Date Time Temp Pulse Resp B/P (MAP) Pulse Ox O2 Delivery O2 Flow Rate FiO2 04/11/24 18:10 69 18 116/74 04/11/24 17:00 98.3 97 98.3 04/11/24 08:15 Room Air* 0 21 Intake/Output Intake and Output 04/11/24 05:00 Intake Total 1250 ml Output Total 900 ml Balance 350 ml Intake Oral 900 ml IV Total 350 ml Output Urine Total 900 ml General Appearance: Alert, Oriented X3, Cooperative, No acute distress HEENT: Atraumatic, PERRLA Lungs: Clear to auscultation, Normal air movement Cardiovascular: Normal S1, Normal S2 Abdomen: Normal bowel sounds, Soft, No tenderness, No hepatospenomegaly, No masses Neuro: Normal gait, Normal speech Skin: Wounds (See nurse notes and pictures) Psych/Mental Status: Mental status NL, Mood NL Medications Current Medications Medications Dose Ordered Sig/Angie Route Start Time Stop Time Status Last Admin Dose Admin Risperidone 0.5 mg DAILY PO 04/09/24 10:00 04/11/24 09:44 0.5 MG Divalproex Sodium 250 mg BID PO 04/09/24 10:00 04/11/24 09:44 250 MG Insulin Human Regular ACHS SC 04/09/24 07:00 04/11/24 06:27 3 UNITS Ondansetron HCl 4 mg Q4HP PRN IV 04/09/24 04:00 Acetaminophen 650 mg Q6HP PRN PO 04/09/24 04:00 Piperacillin Sod/ Tazobactam Sod 100 ml @ 25 mls/hr Q6HR IV 04/09/24 06:00 04/11/24 18:41 25 MLS/HR Saccharomyces Boulardii 250 mg DAILY PO 04/10/24 10:00 04/11/24 09:44 250 MG Morphine Sulfate 2 mg Q6HPRN PRN IV 04/09/24 18:15 04/11/24 17:41 2 MG Diagnostic Test (Pha) 1 strip Q6HR 04/10/24 00:00 04/11/24 17:30 1 STRIP Insulin Human Regular FOLLOW SLIDING SCALE Q6HR SC 04/10/24 00:00 04/11/24 17:47 2 UNITS Dextrose 50 ml UD IV 04/10/24 00:00 Ferrous Sulfate 325 mg BIDWM PO 04/10/24 18:00 04/11/24 17:41 325 MG Acetaminophen/ Hydrocodone Bitart 1 tab Q6HPRN PRN PO 04/10/24 10:00 04/10/24 15:37 1 TAB Clindamycin Phosphate 50 ml @ 50 mls/hr Q8H IV 04/10/24 16:00 04/11/24 17:31 50 MLS/HR Laboratory Results Laboratory Tests 04/10/24 06:58 04/11/24 06:16 Urinalysis Test 04/09/24 04:29 Urine Color Yellow (Yellow) Urine Clarity Clear (Clear) Urine pH 6.0 (5.0-9.0) Urine Specific [place] 1.020 (1.001-1.035) Urine Protein Trace (Negative) H Urine Ketones Negative (Negative) Urine Blood Negative /uL (Negative) Urine Nitrite Negative (Negative) Urine Bilirubin Negative (Negative) Urine Urobilinogen Normal mg/dL (Negative) Urine Leukocyte Esterase Negative /uL (Negative) Urine RBC <1 /hpf (0 - 3) Urine WBC 3 /hpf (0 - 3) Urine Squamous Epithelial Cells Few /hpf (<5) Urine Bacteria None seen /hpf (None Seen) Urine Mucus Few (None Seen) Urine Glucose 3+ mg/dL (Normal) H Microbiology Microbiology Date/Time Source Procedure Growth Status 04/08/24 22:05 Blood Blood Culture - Preliminary NO GROWTH AFTER 48 HOURS OF INCUBATION. Resulted Assessment/Plan Assessment/Plan Impression: -sepsis -right axillary wound secondary to hydradenitis suppurativa -schizophrenia -depression -diabetes mellitus Plan: Events: Patient's H and H holding. White blood cell count improving. Continue IV antibiotic therapy at this time. -iron supplementation -continue Zosyn, and clindamycin -continue risperidone -regular insulin sliding scale -pain management -add Florastor -repeat labs in a.m. Total time spent with patient discussing and formulating plan of care: 35 minutes. Plan discussed with: Patient Date of Service: Apr 11, 2024 Billing Provider: LUBNA ALMONTE MD Common Visit Codes: [id number] INP/OBS CARE(HIGH) LUBNA ALMONTE MD Apr 11, 2024 20:51
[2024-04-12] VITALS (7 sets, daily range): BP systolic 107–111; BP diastolic 63–99; PULSE 76–89; RESP 18–20; TEMP 81–98.8; O2SAT 93–96
--- NOTE | 2024-04-12 20:17 | DVHPN2 ---
Subjective in bed resting Reviewed: Care Plan, H&P, Labs, Medications, Previous Orders Changes from previous H/P or p: No Changes General: Per HPI Objective Vitals Vital Signs Date Time Temp Pulse Resp B/P (MAP) Pulse Ox O2 Delivery O2 Flow Rate FiO2 04/12/24 18:38 76 14 110/62 04/12/24 17:00 98.8 94 98.8 04/12/24 07:44 Room Air* 0 21 Intake/Output Intake and Output 04/12/24 05:00 Intake Total 2910 ml Balance 2910 ml Intake Oral 2460 ml IV Total 450 ml # Voids 10 General Appearance: Alert, Oriented X3, Cooperative, No acute distress HEENT: Atraumatic, PERRLA Lungs: Clear to auscultation, Normal air movement Cardiovascular: Normal S1, Normal S2 Abdomen: Normal bowel sounds, Soft, No tenderness, No hepatospenomegaly, No masses Neuro: Normal gait, Normal speech Skin: Wounds (See nurse notes and pictures) Psych/Mental Status: Mental status NL, Mood NL Medications Current Medications Medications Dose Ordered Sig/Angie Route Start Time Stop Time Status Last Admin Dose Admin Risperidone 0.5 mg DAILY PO 04/09/24 10:00 04/12/24 10:27 0.5 MG Divalproex Sodium 250 mg BID PO 04/09/24 10:00 04/12/24 10:27 250 MG Insulin Human Regular ACHS SC 04/09/24 07:00 04/11/24 22:02 2 UNITS Ondansetron HCl 4 mg Q4HP PRN IV 04/09/24 04:00 Acetaminophen 650 mg Q6HP PRN PO 04/09/24 04:00 Piperacillin Sod/ Tazobactam Sod 100 ml @ 25 mls/hr Q6HR IV 04/09/24 06:00 04/12/24 11:58 25 MLS/HR Saccharomyces Boulardii 250 mg DAILY PO 04/10/24 10:00 04/12/24 10:27 250 MG Morphine Sulfate 2 mg Q6HPRN PRN IV 04/09/24 18:15 04/12/24 18:06 2 MG Diagnostic Test (Pha) 1 strip Q6HR 04/10/24 00:00 04/12/24 17:04 1 STRIP Insulin Human Regular FOLLOW SLIDING SCALE Q6HR SC 04/10/24 00:00 04/11/24 17:47 2 UNITS Dextrose 50 ml UD IV 04/10/24 00:00 Ferrous Sulfate 325 mg BIDWM PO 04/10/24 18:00 04/12/24 17:16 325 MG Acetaminophen/ Hydrocodone Bitart 1 tab Q6HPRN PRN PO 04/10/24 10:00 04/12/24 17:17 1 TAB Clindamycin Phosphate 50 ml @ 50 mls/hr Q8H IV 04/10/24 16:00 04/12/24 09:43 50 MLS/HR Laboratory Results Laboratory Tests 04/10/24 06:58 04/11/24 06:16 Urinalysis Test 04/09/24 04:29 Urine Color Yellow (Yellow) Urine Clarity Clear (Clear) Urine pH 6.0 (5.0-9.0) Urine Specific [place] 1.020 (1.001-1.035) Urine Protein Trace (Negative) H Urine Ketones Negative (Negative) Urine Blood Negative /uL (Negative) Urine Nitrite Negative (Negative) Urine Bilirubin Negative (Negative) Urine Urobilinogen Normal mg/dL (Negative) Urine Leukocyte Esterase Negative /uL (Negative) Urine RBC <1 /hpf (0 - 3) Urine WBC 3 /hpf (0 - 3) Urine Squamous Epithelial Cells Few /hpf (<5) Urine Bacteria None seen /hpf (None Seen) Urine Mucus Few (None Seen) Urine Glucose 3+ mg/dL (Normal) H Microbiology Microbiology Date/Time Source Procedure Growth Status 04/08/24 22:05 Blood Blood Culture - Preliminary NO GROWTH AFTER 72 HOURS OF INCUBATION. Resulted Assessment/Plan Assessment/Plan Impression: -sepsis -right axillary wound secondary to hydradenitis suppurativa -schizophrenia -depression -diabetes mellitus Plan: Events: Patient's H and H holding. White blood cell count improving. Continue IV antibiotic therapy at this time. -iron supplementation -continue Zosyn, and clindamycin -continue risperidone -regular insulin sliding scale -pain management -add Florastor -repeat labs in a.m. Total time spent with patient discussing and formulating plan of care: 35 minutes. Plan discussed with: Patient Date of Service: Apr 12, 2024 Billing Provider: LUBNA ALMONTE MD Common Visit Codes: [id number] INP/OBS CARE(HIGH) LUBNA ALMONTE MD Apr 12, 2024 20:17
[2024-04-13] VITALS (8 sets, daily range): BP systolic 104–115; BP diastolic 65–77; PULSE 63–97; RESP 16–19; TEMP 97.7–98.7; O2SAT 93–98
--- NOTE | 2024-04-13 14:37 | DVHPN2 ---
Subjective Denies any symptoms Reviewed: Care Plan, H&P, Labs, Medications, Previous Orders Changes from previous H/P or p: No Changes General: Per HPI Objective Vitals Vital Signs Date Time Temp Pulse Resp B/P (MAP) Pulse Ox O2 Delivery O2 Flow Rate FiO2 04/13/24 13:00 98.5 80 18 111/69 (83) 97 98.5 04/13/24 08:00 Room Air* 0 21 Intake/Output Intake and Output 04/13/24 07:00 Intake Total 1175 ml Output Total 500 ml Balance 675 ml Intake Oral 800 ml IV Total 375 ml Output Urine Total 500 ml General Appearance: Alert, Oriented X3, Cooperative, No acute distress HEENT: Atraumatic, PERRLA Lungs: Clear to auscultation, Normal air movement Cardiovascular: Normal S1, Normal S2 Abdomen: Normal bowel sounds, Soft, No tenderness, No hepatospenomegaly, No masses Neuro: Normal gait, Normal speech Skin: Wounds (See nurse notes and pictures) Psych/Mental Status: Mental status NL, Mood NL Medications Current Medications Medications Dose Ordered Sig/Angie Route Start Time Stop Time Status Last Admin Dose Admin Risperidone 0.5 mg DAILY PO 04/09/24 10:00 04/13/24 08:52 0.5 MG Divalproex Sodium 250 mg BID PO 04/09/24 10:00 04/13/24 08:52 250 MG Insulin Human Regular ACHS SC 04/09/24 07:00 04/12/24 21:03 2 UNITS Ondansetron HCl 4 mg Q4HP PRN IV 04/09/24 04:00 Acetaminophen 650 mg Q6HP PRN PO 04/09/24 04:00 Piperacillin Sod/ Tazobactam Sod 100 ml @ 25 mls/hr Q6HR IV 04/09/24 06:00 04/13/24 10:39 25 MLS/HR Saccharomyces Boulardii 250 mg DAILY PO 04/10/24 10:00 04/13/24 10:39 250 MG Morphine Sulfate 2 mg Q6HPRN PRN IV 04/09/24 18:15 04/12/24 18:06 2 MG Diagnostic Test (Pha) 1 strip Q6HR 04/10/24 00:00 04/13/24 13:30 1 STRIP Insulin Human Regular FOLLOW SLIDING SCALE Q6HR SC 04/10/24 00:00 04/11/24 17:47 2 UNITS Dextrose 50 ml UD IV 04/10/24 00:00 Ferrous Sulfate 325 mg BIDWM PO 04/10/24 18:00 04/13/24 08:50 325 MG Acetaminophen/ Hydrocodone Bitart 1 tab Q6HPRN PRN PO 04/10/24 10:00 04/13/24 14:19 1 TAB Clindamycin Phosphate 50 ml @ 50 mls/hr Q8H IV 04/10/24 16:00 04/13/24 08:50 50 MLS/HR Laboratory Results Laboratory Tests 04/10/24 06:58 04/11/24 06:16 Urinalysis Test 04/09/24 04:29 Urine Color Yellow (Yellow) Urine Clarity Clear (Clear) Urine pH 6.0 (5.0-9.0) Urine Specific [place] 1.020 (1.001-1.035) Urine Protein Trace (Negative) H Urine Ketones Negative (Negative) Urine Blood Negative /uL (Negative) Urine Nitrite Negative (Negative) Urine Bilirubin Negative (Negative) Urine Urobilinogen Normal mg/dL (Negative) Urine Leukocyte Esterase Negative /uL (Negative) Urine RBC <1 /hpf (0 - 3) Urine WBC 3 /hpf (0 - 3) Urine Squamous Epithelial Cells Few /hpf (<5) Urine Bacteria None seen /hpf (None Seen) Urine Mucus Few (None Seen) Urine Glucose 3+ mg/dL (Normal) H Microbiology Microbiology Date/Time Source Procedure Growth Status 04/08/24 22:05 Blood Blood Culture - Preliminary NO GROWTH AFTER 72 HOURS OF INCUBATION. Resulted Labs and/or images reviewed: Labs reviewed by me, Image(s) reviewed by me Assessment/Plan Assessment/Plan Impression: -sepsis -right axillary wound secondary to hydradenitis suppurativa -schizophrenia -depression -diabetes mellitus Plan: Events: No events overnight -iron supplementation -continue Zosyn, and clindamycin -continue risperidone, Depakote -regular insulin sliding scale -pain management -Social service consult for SNF placement. Total time spent with patient discussing and formulating plan of care: 35 minutes. This medical document was created using an electronic medical record system with [employer] dictation system. Although this document has been carefully reviewed, there may still be some phonetic and typographical errors. These areas are purely typographical due to imperfections of the software programs, and do not reflect any compromise in the patient's medical care. Plan discussed with: Patient, Other (RN) My Orders Orders - GRISELDA MCMILLAN NP Procedure Category Date Status Time * Academic Administrator CONS 04/13/24 Transmitted Consult Complete Blood Count LAB 04/13/24 Logged 13:50 Date of Service: Apr 13, 2024 Billing Provider: GRISELDA MCMILLAN NP Common Visit Codes: [id number] INP/OBS CARE(HIGH) GRISELDA MCMILLAN NP Apr 13, 2024 14:37
[2024-04-13 16:17] LABS: Basophils # (auto) 0 10 ^3/uL (0-0.2); Basophils % (auto) 0.4 % (0.0-2.0); Eosinophils # (auto) 0.4 10 ^3/uL (0-0.8); Eosinophils % (auto) 4.9 % (0.0-7.0); Hematocrit 30.1 % (41.0-53.0); Hemoglobin 9.8 g/dL (13.5-17.5); Lymphocytes # (auto) 1.4 10 ^3/uL (0.4-5.4); Lymphocytes % (auto) 18.7 % (10.0-50.0); Mean Corpuscular Hemoglobin 23.9 pg (28.0-32.0); Mean Corpuscular Hgb Conc. 32.4 g/dL (32.0-36.0); Mean Corpuscular Volume 73.8 fL (80.0-100.0); Monocytes # (auto) 0.6 10 ^3/uL (0-1.3); Monocytes % (auto) 7.6 % (0.0-12.0); Neutrophils # (auto) 5.2 10 ^3/uL (1.6-8.6); Neutrophils % (auto) 68.4 % (37.0-80.0); Platelet Count (auto) 605 10^3/uL (140-450); Red Blood Cells 4.08 10^6/uL (4.5-5.90); White Blood Cell 7.6 10^3/uL (4.4-10.8)
[2024-04-13 16:18] LABS: Red Cell Distribution Width 22.3 % (11.8-14.3)
[2024-04-14 01:00] VITALS: BP 104/70; PULSE 65; RESP 18; TEMP 97.7; O2SAT 95
[2024-04-14 05:00] VITALS: BP 114/72; PULSE 92; RESP 17; TEMP 98.1; O2SAT 94
[2024-04-14] MEDS ORDERED: PIPERACILLIN-TAZOB 3.375GM 100 ML IV ONE (06:29)
[2024-04-14 08:00] VITALS: PULSE 92; RESP 17; O2SAT 94
[2024-04-14 09:00] VITALS: BP 109/66; PULSE 84; RESP 16; TEMP 98.7; O2SAT 95
--- NOTE | 2024-04-15 08:28 | DVHDS2 ---
Discharge Summary Date of Admission Apr 09, 2024 at 03:54 Date of Discharge: Apr 14, 2024 Admitting Diagnosis Right axillary cellulitis Labs/Diagnostic Data: Laboratory Results Test 04/14/24 10:51 04/13/24 15:46 04/10/24 06:58 04/09/24 04:29 POC Glucose 128 mg/dl (70-106) White Blood Count 7.6 10^3/uL (4.4-10.8) Red Blood Count 4.08 10^6/uL (4.5-5.90) Hemoglobin 9.8 g/dL (13.5-17.5) Hematocrit 30.1 % (41.0-53.0) Mean Corpuscular Volume 73.8 fL (80.0-100.0) Mean Corpuscular Hemoglobin 23.9 pg (28.0-32.0) Mean Corpuscular Hemoglobin Concent 32.4 g/dL (32.0-36.0) Red Cell Distribution Width 22.3 % (11.8-14.3) Platelet Count 605 10^3/uL (140-450) Mean Platelet Volume 6.0 fL (6.9-10.8) Neutrophils (%) (Auto) 68.4 % (37.0-80.0) Lymphocytes (%) (Auto) 18.7 % (10.0-50.0) Monocytes (%) (Auto) 7.6 % (0.0-12.0) Eosinophils (%) (Auto) 4.9 % (0.0-7.0) Basophils (%) (Auto) 0.4 % (0.0-2.0) Neutrophils # (Auto) 5.2 10 ^3/uL (1.6-8.6) Lymphocytes # (Auto) 1.4 10 ^3/uL (0.4-5.4) Monocytes # (Auto) 0.6 10 ^3/uL (0-1.3) Eosinophils # (Auto) 0.4 10 ^3/uL (0-0.8) Basophils # (Auto) 0 10 ^3/uL (0-0.2) Nucleated Red Blood Cells 0.0 % Sodium Level 137 mmol/L (136-145) Potassium Level 3.5 mmol/L (3.5-5.1) Chloride Level 105 mmol/L (98-107) Carbon Dioxide Level 26 mmol/L (20-31) Anion Gap 6 (5-15) Blood Urea Nitrogen < 5 mg/dL (9-23) Creatinine 0.65 mg/dL (0.700-1.30) Glomerular Filtration Rate Calc 123 mL/min (>90) BUN/Creatinine Ratio 7.7 (10.0-20.0) Serum Glucose 128 mg/dL (74-106) Calcium Level 8.4 mg/dL (8.7-10.4) Phosphorus Level 4.5 mg/dL (2.4-5.1) Magnesium Level 1.8 mg/dL (1.6-2.6) Total Bilirubin 0.2 mg/dL (0.2-1.0) Aspartate Amino Transferase (AST) < 8 U/L (13-40) Alanine Aminotransferase (ALT) < 9 U/L (7-40) Alkaline Phosphatase 112 U/L (46-116) Total Protein 7.2 g/dL (5.7-8.2) Albumin 2.7 g/dL (3.2-4.8) Urine Color Yellow (Yellow) Urine Clarity Clear (Clear) Urine pH 6.0 (5.0-9.0) Urine Specific [place] 1.020 (1.001-1.035) Urine Protein Trace (Negative) Urine Ketones Negative (Negative) Urine Blood Negative /uL (Negative) Urine Nitrite Negative (Negative) Urine Bilirubin Negative (Negative) Urine Urobilinogen Normal mg/dL (Negative) Urine Leukocyte Esterase Negative /uL (Negative) Urine RBC <1 /hpf (0 - 3) Urine WBC 3 /hpf (0 - 3) Urine Squamous Epithelial Cells Few /hpf (<5) Urine Bacteria None seen /hpf (None Seen) Urine Mucus Few (None Seen) Urine Glucose 3+ mg/dL (Normal) Test 04/08/24 20:39 Platelet Estimate Increased Hypochromasia (manual) Moderate Anisocytosis (manual) Slight Microcytosis Moderate Tear Drop Cells Few Lactic Acid Level 1.6 mmol/L (0.4-2.0) Other Laboratory Tests 04/13/24 15:46 04/10/24 06:58 Brief Hx & Hospital Course: History of Present Illness 38-year-old male presents for evaluation of generalized weakness. Patient was brought in by family members after noting patient becoming progressively weaker over the past two months. Patient also reports having a wound to his right axilla for which home health visits in for treatment. Patient with a history of hidradenitis suppurativa status post surgery two right axilla three months ago. Denies fever or chills. No other acute complaints reported. Course of hospitalization: Patient was started on both Zosyn and clindamycin. Patient was white blood cell count improved. Patient has a history of schizophrenia and also states that he was homeless. He also reports that he was receiving home health services while living with his brother, for wound care. Social service consultation was obtained to assist with discharge planning including snf facility placement for wound care and antibiotics. The patient was decided to leave against medical advice. Patient was brother was notified by nursing staff. Total time spent with patient discussing and formulating plan of care: 35 minutes. This medical document was created using an electronic medical record system with [employer] dictation system. Although this document has been carefully reviewed, there may still be some phonetic and typographical errors. These areas are purely typographical due to imperfections of the software programs, and do not reflect any compromise in the patient's medical care. Condition at Discharge: Poor Final Diagnosis/Problems List Sepsis Secondary Diagnosis: -sepsis -right axillary wound secondary to hydradenitis suppurativa -schizophrenia -depression -diabetes mellitus Discharge Disposition: AMA 37 Discharge Statement: "Patient was advised to return to the ER or call 911 if any headaches, dizziness, shortness of breath, chest pain, abdominal pain, bleeding, fevers, or worsening of medical condition. Patient was counseled about treatment plan, medications, possible side effects, patientverbalized understanding. All questions were answered to the best of my ability. This discharge took greater then 30 minutes in planning, reviewing documentation, counseling the patient, and discussing with other team members." ASSESSMENT ASSESSMENT Assessment Date of Service: Apr 14, 2024 Billing Provider: GRISELDA MCMILLAN NP Common Visit Codes: [id number] DISCH DAY <30MIN GRISELDA MCMILLAN NP Apr 15, 2024 08:28
== END 2024-04-14 11:19 | disposition left against medical advice (07) | DRG 872 ==
LOC: ER 18:48 → OVERFLOW 04-09 03:54 → WEST WING 04-09 17:03
PROVIDERS: ADMIT Hospitalist; ATTEND Nurse Practitioner Acute Care
PROC: 30233N1 Transfusion of Nonautologous Red Blood Cells into Peripheral Vein, Percutaneous Approach (ICD-10-PCS; principal; 2024-04-09)
DX: A41.9 Sepsis, unspecified organism (principal); Z59.00 Homelessness unspecified; L03.111 Cellulitis of right axilla; L73.2 Hidradenitis suppurativa; D64.9 Anemia, unspecified; F20.9 Schizophrenia, unspecified; F32.A Depression, unspecified; Z53.29 Procedure and treatment not carried out because of patient's decision for other reasons; E11.9 Type 2 diabetes mellitus without complications; F41.9 Anxiety disorder, unspecified; F17.210 Nicotine dependence, cigarettes, uncomplicated; Z83.3 Family history of diabetes mellitus
CPT/HCPCS: 36415; 71250; 80048; 80053; 81001; 82962; 83605; 83735; 84100; 85025; 86850; 86900; 86901; 86920; 87040; 93005; 99291; G0378; J1815; J2543; J3490

== ENCOUNTER 2024-04-15 19:41 | Inpatient (IN) | payer OTHER, MEDICAID ==
[~2024-04-15] VITALS: Ht 188 cm; Wt 101.2 kg
[~2024-04-15 19:41] MED LIST changes: -ARIP30TA2; +BACL10TA PO; +DIVA1TAB58 PO; +FERR324T16 PO; +LAMO25TA27 PO; -NORPTMEDS CO; +PALI234I IM; +RIS1T PO; -TRAZ-228
[2024-04-15 21:01] LABS: Basophils # (auto) 0 10 ^3/uL (0-0.2); Hemoglobin 10.6 g/dL (13.5-17.5); Monocytes # (auto) 0.5 10 ^3/uL (0-1.3); Neutrophils % (auto) 72.2 % (37.0-80.0)
[2024-04-15 21:03] LABS: Basophils % (auto) 0.4 % (0.0-2.0); Eosinophils # (auto) 0.3 10 ^3/uL (0-0.8); Eosinophils % (auto) 3.1 % (0.0-7.0); Hematocrit 33.5 % (41.0-53.0); Lymphocytes # (auto) 1.8 10 ^3/uL (0.4-5.4); Lymphocytes % (auto) 18.9 % (10.0-50.0); Mean Corpuscular Hemoglobin 24.2 pg (28.0-32.0); Mean Corpuscular Hgb Conc. 31.7 g/dL (32.0-36.0); Mean Corpuscular Volume 76.5 fL (80.0-100.0); Monocytes % (auto) 5.4 % (0.0-12.0); Neutrophils # (auto) 6.7 10 ^3/uL (1.6-8.6); Platelet Count (auto) 603 10^3/uL (140-450); Red Blood Cells 4.37 10^6/uL (4.5-5.90); White Blood Cell 9.3 10^3/uL (4.4-10.8)
--- NOTE | 2024-04-15 21:21 | ED.PDOC ---
History of Present Illness HPI Comments 38 year old male brought in by EMS presents to the ED with a chief complaint of wound check onset today. Patient states he left AMA from this hospital about 2 days ago. Patient had a surgery done 9 months ago, does not recall what surgery or what hospital and states the wound has not fully healed. Patient noticed wound is red, swollen and with drainage. Patient is also experienced generalized weakness, body aches and chills. PMHx schizophrenia, anxiety, depression. Denies shortness of breath, dizziness, blurry vision, nausea, vomiting, diarrhea. No other symptoms or modifying factors present at this time. Chief Complaint: Wound Check Time Seen by MD: 21:03 Primary Care Provider: NONE Reviewed Notes: Medications, Allergies Allergies: Coded Allergies: NO KNOWN ALLERGIES (Unverified , 10/28/12) Home Meds Reported Medications Paliperidone Palmitate (Invega Sustenna) 234 Mg/1.5 Ml Inj, 234 MG IM MONTHLY, INJ 04/10/24 Lamotrigine (Lamotrigine) 25 Mg Tab, 25 MG PO BID, TAB 04/10/24 Baclofen (Baclofen) 10 Mg Tab, 10 MG PO Q12H, MG 04/10/24 Divalproex Sodium (Divalproex Sodium Dr) 250 Mg Tab, 250 MG PO TID, TAB 04/10/24 Risperidone (RisperDAL TABLET) 1 Mg Tb, 1 TAB PO BID, TAB 04/10/24 Ferrous Fumarate (Ferrous Fumarate 324) 324 Mg Tab, 324 MG PO DAILY, TAB 04/10/24 Information Source: Patient, Emergency Med Personnel Mode of Arrival: EMS Severity: Moderate Timing: Months Duration: Since onset Prehospital treatment: None Past Medical History PAST MEDICAL HISTORY: Anxiety, Depression, Schizophrenia Surgical History: Denies all surgeries Family History Family History: Family hx of DM Social History Smoker: Cigarettes, Less Than 1 Pack/Day Alcohol: Occasionally Drugs: Marijuana, Methamphetamine Lives In: Home Constitutional: reports: chills, weakness, others (body aches); denies: diaphoresis, fatigue, fever, malaise, sweats EENTM: denies: blurred vision, double vision, ear bleeding, ear discharge, ear drainage, ear pain, ear ringing, eye pain, eye redness, hearing loss, mouth pain, mouth swelling, nasal discharge, nose bleeding, nose congestion, nose pain, photophobia, tearing, throat pain, throat swelling, voice changes, others Respiratory: denies: cough, hemoptysis, orthopnea, SOB at rest, shortness of breath, SOB with excertion, stridor, wheezing, others Cardiovascular: denies: chest pain, dizzy spells, diaphoresis, Dyspnea on exertion, edema, irregular heart beat, left arm pain, lightheadedness, palpitations, PND, syncope, others Gastrointestinal: denies: abdomen distended, abdominal pain, blood streaked bowels, constipated, diarrhea, dysphagia, difficulty swallowing, hematemesis, melena, nausea, poor appetite, poor fluid intake, rectal bleeding, rectal pain, vomiting, others Genitourinary: denies: burning, dysuria, flank pain, frequency, hematuria, incontinence, penile discharge, penile sore, pain, testicle pain, testicle swelling, urgency, others Neurological: reports: weakness; denies: dizziness, fainting, headache, left sided numbness, left sided weakness, numbness, paresthesia, pre-existing deficit, right sided numbness, right sided weakness, seizure, speech problems, tingling, tremors, others Musculoskeletal: denies: back pain, gout, joint pain, joint swelling, muscle pain, muscle stiffness, neck pain, others Integumetry: reports: laceration (RT side chest wall, RT axillary ); denies: bruises, change in color, change in hair/nails, dryness, lesions, lumps, rash, wounds, others Allergic/Immunocompromised: denies: Difficulty Healing, Frequent Infections, Hives, Itching, others Hematologic/Lymphatic: denies: anemia, blood clots, easy bleeding, easy bruising, swollen glands, others Endocrine: denies: excessive hunger, excessive sweating, excessive thirst, excessive urination, flushing, intolerance to cold, intolerance to heat, unexplained weight gain, unexplained weight loss, others Psychiatric: denies: anxiety, bipolar disorder, depression, hopeless, panic disorder, schizophrenia, sleepless, suicidal, others All Other Systems: Reviewed and Negative Physical Exam General Appearance: No Apparent Distress, Normal HEENT: Normal ENT Inspection, Pharynx Normal, TMs Normal Neck: Full Range of Motion, Non-Tender, Normal, Normal Inspection Respiratory: Chest Non-Tender, Lungs Clear, No Accessory Muscle Use, No Respiratory Distress, Normal Breath Sounds Cardiovascular: No Edema, No JVD, No Murmur, No Gallop, Normal Peripheral Pulses, Regular Rate/Rhythm Breast Exam: Deferred Gastrointestinal: No Organomegaly, Non Tender, No Pulsatile Mass, Normal Bowel Sounds, Soft Genitalia: Deferred Pelvic: Deferred Rectal: Deferred Extremities: No calf tenderness, Normal capillary refill, Normal inspection, Normal range of motion, Non-tender, No pedal edema Musculoskeletal : Apperance: Normal Neurologic: Alert, electronic coils supervisor II-XII nml as Tested, No Motor Deficits, Normal Affect, Normal Mood, No Sensory Deficits Cerebellar Function: Normal Reflexes: Normal Skin: Lacerations (large laceration noted RT chest wall expanding to RT axillary inner arm. measuring 10 cm x 5 cm) Lymphatic: No Adenopathy Was a procedure done? Was a procedure done?: No Differential Dx Considerations may include: Cellulitis, ulceration, X-Ray, Labs, Meds, VS Vital Signs Date Time Temp Pulse Resp B/P (MAP) Pulse Ox O2 Delivery O2 Flow Rate FiO2 04/15/24 19:41 98.0 134 16 123/77 (92) 100 Lab Test 04/15/24 20:49 Range/Units White Blood Count 9.3 4.4-10.8 10^3/uL Red Blood Count 4.37 L 4.5-5.90 10^6/uL Hemoglobin 10.6 L 13.5-17.5 g/dL Hematocrit 33.5 #L 41.0-53.0 % Mean Corpuscular Volume 76.5 L 80.0-100.0 fL Mean Corpuscular Hemoglobin 24.2 L 28.0-32.0 pg Mean Corpuscular Hemoglobin Concent 31.7 L 32.0-36.0 g/dL Red Cell Distribution Width 23.0 H 11.8-14.3 % Platelet Count 603 H 140-450 10^3/uL Mean Platelet Volume 6.2 L 6.9-10.8 fL Neutrophils (%) (Auto) 72.2 37.0-80.0 % Lymphocytes (%) (Auto) 18.9 10.0-50.0 % Monocytes (%) (Auto) 5.4 0.0-12.0 % Eosinophils (%) (Auto) 3.1 0.0-7.0 % Basophils (%) (Auto) 0.4 0.0-2.0 % Neutrophils # (Auto) 6.7 1.6-8.6 10 ^3/uL Lymphocytes # (Auto) 1.8 0.4-5.4 10 ^3/uL Monocytes # (Auto) 0.5 0-1.3 10 ^3/uL Eosinophils # (Auto) 0.3 0-0.8 10 ^3/uL Basophils # (Auto) 0 0-0.2 10 ^3/uL Nucleated Red Blood Cells 0.0 % Sodium Level 135 L 136-145 mmol/L Potassium Level 3.8 3.5-5.1 mmol/L Chloride Level 105 98-107 mmol/L Carbon Dioxide Level 25 20-31 mmol/L Anion Gap 5 5-15 Blood Urea Nitrogen 8 L 9-23 mg/dL Creatinine 0.94 0.700-1.30 mg/dL Glomerular Filtration Rate Calc 106 >90 mL/min BUN/Creatinine Ratio 8.5 L 10.0-20.0 Serum Glucose 156 H 74-106 mg/dL Lactic Acid Level 1.5 0.4-2.0 mmol/L Calcium Level 8.9 8.7-10.4 mg/dL Total Bilirubin 0.2 0.2-1.0 mg/dL Aspartate Amino Transferase (AST) 11 L 13-40 U/L Alanine Aminotransferase (ALT) < 9 7-40 U/L Alkaline Phosphatase 76 46-116 U/L Total Protein 8.7 H 5.7-8.2 g/dL Albumin 3.4 3.2-4.8 g/dL [place] [address] Ph: [phone] DIAGNOSTIC IMAGING Diagnostic Imaging Report : [id number] Signed PATIENT: ELMER CARDOZO III IACCT: [id number] UNIT: [id number] : 1985 LOC: ER ROOM / BED: / AGE / SEX: 38 / M ADM STATUS: REG ER SERVICE 99 ORDERING PHYSICIAN: JASON SURESH MD PROCEDURE(s): CXR2 - CHEST TWO VIEWS ROUTINE REASON: weakness ORDER NUMBER(s): [id number], ACCESSION NUMBER(s): [id number] EXAM: XY CHEST TWO VIEWS ROUTINE CLINICAL HISTORY: weakness TECHNIQUE: Frontal and lateral views of the chest WID: COMPARISON: None FINDINGS: Lines and tubes: None Chest: The heart size and pulmonary vasculature is within normal limits. Blunting of the bilateral costophrenic angles, greater on the left . No pneumothorax or airspace consolidation. The osseous structures are grossly intact. IMPRESSION: Small bilateral pleural effusions. ATED BY: JOSE SMALLWOOD MD DICTATED DATE/TIME: 04/15/242224 SIGNED BY: JOSE SMALLWOOD MD SIGNED DATE/TIME: 04/15/242224 CC: Time of 1ST Reevaluation: 21:33 Reevaluation 1ST: Unchanged Patient Education/Counseling: Diagnosis, Treatment, Prognosis Family Education/Counseling: No Family Present Additional Information The following tests were ordered, and results were reviewed by me: CBC, CMP, LA W/ REFLEX, BLOOD CULTURE, XY CHEST 2 VIEWS Additional Information was gathered from interviewing the following independent historians: EMS I reviewed and agreed with the following test results read by other providers: XY CHEST 2 VIEWS I discussed treatment and results with medical personnel and patient Departure 1 Departure Time of Disposition: 23:05 (Patient with cellulitis and inability to care for his wounds. We will admit patient for further workup) Impression: Primary Impression: Cellulitis Qualified Codes: L03.113 - Cellulitis of right upper limb Additional Impression: Schizophrenia Qualified Codes: F20.9 - Schizophrenia, unspecified Disposition: 09 ADMITTED INPATIENT Admit to: Med Surg Condition: Serious Critical Care Note Critical Care Time?: No Stability Stability form required: No I personally scribed for JASON SURESH MD ([email or web address]) on 04/15/24 at 21:21. Electronically submitted by Isabel Hartley ([email or web address]). I personally scribed for JASON SURESH MD ([email or web address]) on 04/15/24 at 21:30. Electronically submitted by Isabel Hartley ([email or web address]). I personally scribed for JASON SURESH MD ([email or web address]) on 04/15/24 at 22:14. Electronically submitted by Isabel Hartley ([email or web address]). I personally scribed for JASON SURESH MD ([email or web address]) on 04/15/24 at 22:32. Electronically submitted by Isabel Hartley ([email or web address]). JASON SURESH MD Apr 15, 2024 21:21
[2024-04-15 21:30] LABS: Alanine Aminotransferase < 9 U/L (7-40); Albumin 3.4 g/dL (3.2-4.8); Alkaline Phosphatase 76 U/L (46-116); Anion Gap 5 (5-15); Aspartate Aminotransferase 11 U/L (13-40); BUN/Creatinine Ratio 8.5 (10.0-20.0); Blood Urea Nitrogen 8 mg/dL (9-23); Calcium 8.9 mg/dL (8.7-10.4); Carbon Dioxide 25 mmol/L (20-31); Chloride 105 mmol/L (98-107); Glucose 156 mg/dL (74-106); Potassium 3.8 mmol/L (3.5-5.1); Sodium 135 mmol/L (136-145)
[2024-04-15 21:31] LABS: Bilirubin, Total 0.2 mg/dL (0.2-1.0); Total Protein 8.7 g/dL (5.7-8.2)
--- NOTE | 2024-04-15 22:27 | DVH ---
EXAM: XY CHEST TWO VIEWS ROUTINE CLINICAL HISTORY: weakness TECHNIQUE: Frontal and lateral views of the chest WID: COMPARISON: None FINDINGS: Lines and tubes: None Chest: The heart size and pulmonary vasculature is within normal limits. Blunting of the bilateral costophrenic angles, greater on the left . No pneumothorax or airspace cons olidation. The osseous structures are grossly intact. IMPRESSION: Small bilateral pleural effusions.
--- NOTE | 2024-04-15 23:55 | DVHHPRES ---
History of Present Illness Resident Creating Document: [facility] History of Present Illness This is a 38-year-old male with past history of schizophrenia, depression, diabetes type 2, and hidradenitis suppurative came to the hospital due to generalized body pain and axillary wound evaluation. Per patient's brother, the patient has hidradenitis suppurativa since 23 years, has been admitted to the hospital multiple times, underwent surgery for hidradenitis suppurative 9 month back, but recently the wound has worsened back. The patient also has been diagnosed with schizophrenia when he was 17 years old, has been living in a facility (down the [address], do not know the exact name), where he is provided a intermediate, food and wound care. The patient has recently came to visit his brother, the brother noticed that the wound has worsened which prompted this visit. Previous admission: Patient had recently admitted at [facility] for the current condition, but left AMA and 04/14/2024. PMHx: schizophrenia, depression, diabetes type 2, and hidradenitis suppurative PSHx: Surgery for hidradenitis suppurative Social history: Has been living in a facility (down the [address], do not know the exact name), where he is provided a intermediate, food and wound care. Smoke cigarettes, denies alcohol or any other drug use. Home medication: The patient does not remember the medication Allergic history: No known allergies Review of Systems Review of Systems General: Reports generalized body pain and weakness HEENT: No headaches, visiual changes, hearing loss, tinnitus, nasal congestion and discharge, and sore throat. Cardiovascular: Denies chest pain, palpitations, dyspnea on exertion, orthopnea, or claudication. Respiratory: No cough, and wheezing. Gastrointestinal: Denies nausea, vomiting, dysphagia, odynophagia, heartburn, abdominal pain, flatulence, bloating, diarrhea, constipation, change in stool, or blood in stool. Genitourinary: No dysuria, hematuria, discharge, frequency, urgency, nocturia, incontinence, and urinary retention. Endocrine: No heat or cold intolerance, polydipsia, polyuria, and polyphagia. Neurological: No dizziness, extremity weakness and numbness, tremors, gait disturbance, seizures, and memory impairment. Psychiatric: Denies depression, anxiety,or insomnia. Musculoskeletal: Denies neck pain, stiffness and swelling, back pain, muscle weakness, joint pain, stiffness, swelling, or limited range of motion. Skin: No rashes, itching, skin lesion, changes in hair, nail, skin texture and breast. Hematologic/Lymphatic: Denies easy bruising, bleeding tendencies, or lymph node enlargement. Allergies: Coded Allergies: NO KNOWN ALLERGIES (Unverified , 10/28/12) Exam Vital Signs Vital Signs Date Time Temp Pulse Resp B/P (MAP) Pulse Ox O2 Delivery O2 Flow Rate FiO2 04/15/24 19:41 98.0 134 16 123/77 (92) 100 Exam General Appearance: Alert, Oriented X3, Cooperative, but can not provide proper history due to medical condition (schizophrenia) HEENT: Atraumatic, PERRLA, EOMI, Mucous membrane moist/pink Respiratory: Clear to auscultation, Normal air movement Cardiovascular: Regular rate, Normal S1, Normal S2, No murmurs, no chest wall tenderness Abdominal: Normal bowel sounds, Soft, No tenderness, No hepatospenomegaly, No masses Extremities: No clubbing, No cyanosis, No edema, Normal pulses, No tenderness/swelling Skin: There is a superficial large ulcer on the right axillary area, with surrounding fibrous tract, the results intertrigo on the right inguinal area, with fibrous tract with draining sinuses Neuro: Normal gait, Normal speech, Strength at 5/5 X4 ext, Normal tone, Sensation intact, Cranial nerves 3-12 NL, Reflexes 2+ Psych/Mental Status: Mental status NL, Mood NL Labs/Xrays Labs Test 04/15/24 20:49 Range/Units White Blood Count 9.3 4.4-10.8 10^3/uL Red Blood Count 4.37 L 4.5-5.90 10^6/uL Hemoglobin 10.6 L 13.5-17.5 g/dL Hematocrit 33.5 #L 41.0-53.0 % Mean Corpuscular Volume 76.5 L 80.0-100.0 fL Mean Corpuscular Hemoglobin 24.2 L 28.0-32.0 pg Mean Corpuscular Hemoglobin Concent 31.7 L 32.0-36.0 g/dL Red Cell Distribution Width 23.0 H 11.8-14.3 % Platelet Count 603 H 140-450 10^3/uL Mean Platelet Volume 6.2 L 6.9-10.8 fL Neutrophils (%) (Auto) 72.2 37.0-80.0 % Lymphocytes (%) (Auto) 18.9 10.0-50.0 % Monocytes (%) (Auto) 5.4 0.0-12.0 % Eosinophils (%) (Auto) 3.1 0.0-7.0 % Basophils (%) (Auto) 0.4 0.0-2.0 % Neutrophils # (Auto) 6.7 1.6-8.6 10 ^3/uL Lymphocytes # (Auto) 1.8 0.4-5.4 10 ^3/uL Monocytes # (Auto) 0.5 0-1.3 10 ^3/uL Eosinophils # (Auto) 0.3 0-0.8 10 ^3/uL Basophils # (Auto) 0 0-0.2 10 ^3/uL Nucleated Red Blood Cells 0.0 % Sodium Level 135 L 136-145 mmol/L Potassium Level 3.8 3.5-5.1 mmol/L Chloride Level 105 98-107 mmol/L Carbon Dioxide Level 25 20-31 mmol/L Anion Gap 5 5-15 Blood Urea Nitrogen 8 L 9-23 mg/dL Creatinine 0.94 0.700-1.30 mg/dL Glomerular Filtration Rate Calc 106 >90 mL/min BUN/Creatinine Ratio 8.5 L 10.0-20.0 Serum Glucose 156 H 74-106 mg/dL Lactic Acid Level 1.5 0.4-2.0 mmol/L Calcium Level 8.9 8.7-10.4 mg/dL Total Bilirubin 0.2 0.2-1.0 mg/dL Aspartate Amino Transferase (AST) 11 L 13-40 U/L Alanine Aminotransferase (ALT) < 9 7-40 U/L Alkaline Phosphatase 76 46-116 U/L Total Protein 8.7 H 5.7-8.2 g/dL Albumin 3.4 3.2-4.8 g/dL Assessment/Plan Assessment/Plan Right axillary hidradenitis suppurative Right inguinal area hidradenitis suppurative/intertrigo Possible right axillary cellulitis Chest CT from 04/09/2024 shows superficial wound in lateral thorax with asso ciated fat stranding and foci of air Wound culture and check MRSA nares Wound consult Empiric antibiotic of Doxycycline Wound dressing Small pleural effusion Chest x-ray shows bilateral lung with small bilateral pleural effusion Small pericardial effusion Chest CT scan finding History of diabetes mellitus Check Hb A1c Insulin mild SS History of schizophrenia Continue risperidone Mild anemia, microcytic hypochromic Iron panel Vitamin check vitamin B12 and folate DIET: Diabetic diet CODE STATUS: Goal of care discussed for more than 21 minutes, full code. DISPOSITION: Med/surge Patient's status and paln discussed with the patient and the brother on the bedside. Case discussed with Dr. Mcbride. Plan discussed with: Patient, Other (RN) My Orders Orders - MERY PINEDO Procedure Category Date Status Time Admit ADMIT 04/15/24 Verified 23:54 Stat Ekg For Chest MAGGIE 04/15/24 Verified Pain 23:54 Notify Md Of Changes MAGGIE 04/15/24 Verified From Base 23:54 Date of Service: Apr 15, 2024 Billing Provider: SCOOBY MCBRIDE MD Common Visit Codes: [id number] INP/OBS CARE (HIGH) MERY PINEDO Apr 15, 2024 23:55 SCOOBY MCBRIDE MD Apr 16, 2024 09:46
[2024-04-16 01:18] VITALS: PULSE 120; RESP 20; O2SAT 98
[2024-04-16] MEDS: VANCOMYCIN 1GM/250ML KIT 200 ML IV ONE (01:18)
[2024-04-16] MEDS ORDERED: MORPHINE SULFATE INJ 2 MG/ml SYRG IV ONE (01:45)
[2024-04-16] MEDS ORDERED: DEXTROSE (50%) 50ML SYRG IV PRN ×2 (01:45→06:00)
[2024-04-16] MEDS ORDERED: VANCOMYCIN PER PHARMACY 0 MG IV SCH (01:45)
[2024-04-16 02:02] VITALS: BP 123/77; PULSE 134; RESP 16; TEMP 98; O2SAT 100
[2024-04-16] MEDS: risperiDONE 1 MG TAB PO ONE (02:57)
[2024-04-16] MEDS: InsuLIN REG 1unit/0.01ml Soln (100units/ml) SC SCH ×2 (04:00→07:08)
[2024-04-16] MEDS: ACCU-CHEK COMFORT CURVE STRIP VI SCH ×2 (04:23→07:08)
[2024-04-16] MEDS: CLINDAMYCIN 600MG IV 50 ML IV SCH (05:28)
[2024-04-16 05:42] LABS: Eosinophils # (auto) 0.3 10 ^3/uL (0-0.8); Monocytes # (auto) 0.7 10 ^3/uL (0-1.3); Red Blood Cells 4.32 10^6/uL (4.5-5.90)
[2024-04-16 05:45] LABS: Basophils # (auto) 0.1 10 ^3/uL (0-0.2); Basophils % (auto) 0.6 % (0.0-2.0); Eosinophils % (auto) 2.8 % (0.0-7.0); Hematocrit 32.9 % (41.0-53.0); Hemoglobin 10.3 g/dL (13.5-17.5); Lymphocytes # (auto) 2.2 10 ^3/uL (0.4-5.4); Lymphocytes % (auto) 23.7 % (10.0-50.0); Mean Corpuscular Hemoglobin 23.7 pg (28.0-32.0); Mean Corpuscular Hgb Conc. 31.2 g/dL (32.0-36.0); Mean Corpuscular Volume 76.1 fL (80.0-100.0); Monocytes % (auto) 7.6 % (0.0-12.0); Neutrophils % (auto) 65.3 % (37.0-80.0); Platelet Count (auto) 607 10^3/uL (140-450); White Blood Cell 9.2 10^3/uL (4.4-10.8)
[2024-04-16 05:49] LABS: Red Cell Distribution Width 22.9 % (11.8-14.3)
[2024-04-16 05:57] LABS: INR 1.22 (0.9-1.15); Prothrombin Time 12.7 sec (9.3-11.8)
[2024-04-16 06:00] LABS: % Iron Saturation 13.1 % (20-55)
[2024-04-16 06:03] LABS: Albumin 3.5 g/dL (3.2-4.8); Alkaline Phosphatase 77 U/L (46-116); Anion Gap 6 (5-15); BUN/Creatinine Ratio 19.2 (10.0-20.0); Blood Urea Nitrogen 15 mg/dL (9-23); Carbon Dioxide 24 mmol/L (20-31); Chloride 105 mmol/L (98-107)
[2024-04-16 06:04] LABS: Ferritin 236.4 ng/mL (22-322)
[2024-04-16 06:05] LABS: Alanine Aminotransferase < 9 U/L (7-40); Aspartate Aminotransferase < 8 U/L (13-40); Bilirubin, Total 0.3 mg/dL (0.2-1.0); Calcium 8.3 mg/dL (8.7-10.4); Glucose 113 mg/dL (74-106); Sodium 135 mmol/L (136-145); Total Protein 8.8 g/dL (5.7-8.2)
--- NOTE | 2024-04-16 06:17 | DVH ---
Procedure: CT CHEST WITHOUT CONTRAST Reason for study/Clinical History: Cellulitis Comparison Study: Chest radiograph performed on 04/15/2024. CT scan of the chest dated 04/08/2024. Exam Date: 04/16/2024 05:40 AM TECHNIQUE: Multidetector CT of the chest was performed from the lung apices to the upper abdomen with out the use of intravenous contract. Coronal and sagittal multiplanar reformats were performed. Radiation Dose Information: CT Dose: CTDI volume is 18.3 mGy. Dose-length product is 734.9 mGy*cm The dose indicators for CT are the volume Computed Tomography (CT) Dose Index (CTDIvol) and the Dose Length Product (DLP), and are measured in units of mGy and mGy-cm, respectively. These indicators are not patient dose, but values generated from the CT scanner acquisition factors. The report includes radiation exposure data for exposures received during this examination. FINDINGS: Lower neck: Normal thyroid. Lungs: Reticular nodular opacities in the right middle and lower lobe. Trachea and central airways: Patent. Pleura: No pneumothorax. Small bilateral pleural effusions. Heart/Vascular Structures: Normal heart size. Small pericardial effusion. Lymph Nodes: Increased number of left axillary lymph nodes measuring up to 7 mm in short axis. Musculoskeletal: No acute osseous abnormality. Soft tissues: Left chest wall skin thickening with small foci of air. No fluid collection. Upper abdomen: Limited portions of the upper abdomen are unremarkable. IMPRESSION: 1. Small bilateral pleural effusions. 2. Reticular nodular opacities in the right middle and lower lobe which may be infectious or inflamma tory in etiology. 3. Small pericardial effusion. 4. Left chest wall skin thickening small foci of air which may reflect infection. Appearance is simil ar to recent chest CT from 04/08/2024. 5. Left axillary lymphadenopathy, probably reactive. Radiation optimization: All CT scans at this facility use at least one of these dose optimization karl hniques: automated exposure control mA and/or kV adjustment per patient size (includes targeted exam s where dose is matched to clinical indication) or iterative reconstruction.
[2024-04-16 06:21] VITALS: BP 104/50; PULSE 107; RESP 18; TEMP 98.1; O2SAT 97
[2024-04-16] MEDS ORDERED: cefTRIAXone 1GM/50ML D5W 50 ML IV SCH (09:00)
[2024-04-16 09:31] VITALS: BP 109/55; PULSE 99; RESP 16; TEMP 98.3; O2SAT 96
--- NOTE | 2024-04-16 11:40 | DVHPNRES ---
Progress Note Date Seen: Apr 16, 2024 Resident Creating Document: JAMEY ARELLANO RESIDENT Has the PT tested + for MRSA If YES, has PT been informed?: No Medical Necessity Reason Pt with a Central, PICC or Fol: No Medical Necessity Reason Generalized body pains Chronic hidradenitis suppurativa Subjective Review of Systems Chief informant is his brother This is a 38-year-old male with past history of schizophrenia, depression, diabetes type 2, and hidradenitis suppurative came to the hospital due to generalized body pain and axillary wound evaluation. According to his brother, the patient has had this hidradenitis suppurative since he was 23 years and has been admitted to the hospital multiple times. He underwent surgery for hidradenitis suppurativa [address] [facility], but recently the wound has worsened. Per patient has been been compliant with antibiotic treatment. Patient lives in a facility down the [place], not know the exact name, where he receives group home, food and wound care. The patient has recently came to visit his brother who noticed that the wound has worsened and brought him to the ED. In the ED his vitals were temperature 98, pulse 134, blood pressure 98/59, and RR: 16. Chest x-ray shows Small bilateral pleural effusions. CT of the chest: Small bilateral pleural effusions. Reticular nodular opacities in the right middle and lower lobe which may be infectious or inflammatory in etiology. Left chest wall skin thickening small foci of air which may reflect infection. Appearance is similar to recent chest CT from 04/08/2024.Left axillary lymphadenopathy, probably reactive. Constitutional: Denies fever no chills no feeling of malaise; generalized body pain HEENT: Denies headache, ear pain, ear discharges, conjunctivitis, nasal discharge throat pain Cardiovascular: Denies chest pain, palpitation, orthopnea, PND, or pedal edema Respiratory: Denies shortness of breath, cough cough, sputum production, hemoptysis, GI: Denies abdominal pain, nausea, vomiting, diarrhea, hematemesis, hematochezia, : Denies frequency, urgency, hematuria, Endocrine: Denies unintentional weight gain or weight loss, feeling of hot flashes, Akash: Denies easy bruising, bleeding disorders, epistaxis Musculoskeletal: Denies joint pains, muscle aches Psych: No evidence of depression, lyle, suicidal ideation Objective vital signs Vital Sign Date Time Temp Pulse Resp B/P (MAP) Pulse Ox O2 Delivery O2 Flow Rate FiO2 04/16/24 09:31 98.3 99 16 109/55 (73) 96 98.3 04/16/24 02:02 Room Air* 0 21 Total Intake and Output 04/15/24 04/15/24 04/16/24 15:00 23:00 07:00 Intake Total 50 ml Balance 50 ml medications Current Medications Medications Dose Ordered Sig/Angie Route Start Time Stop Time Status Last Admin Dose Admin Acetaminophen/ Hydrocodone Bitart 1 tab Q4HP PRN PO 04/16/24 01:45 Risperidone 1 mg DAILY PO 04/17/24 10:00 Diagnostic Test (Pha) 1 strip ACHS 04/16/24 07:00 04/16/24 07:08 1 STRIP Insulin Human Regular ACHS SC 04/16/24 07:00 04/16/24 07:08 2 UNITS Dextrose 50 ml UD PRN IV 04/16/24 06:00 Doxycycline Hyclate 100 ml @ 50 mls/hr Q12HR IV 04/16/24 08:15 Examination General Appearance: Alert, Oriented X3, Cooperative, No acute distress HEENT: Atraumatic, PERRLA, EOMI, Mucous membrane moist/pink Respiratory: Clear to auscultation, Normal air movement Cardiovascular: Regular rate, Normal S1, Normal S2, No murmurs, no chest wall tenderness Abdominal: NO distention, no tenderness, bowel sounds present, no scars noted Extremities: --- Right lower extremity: intertrigo on the right inguinal area, with fibrous tract with draining sinuses Right upper extremity: --> large open wound inthe right axillary area, draining on the edges, ---> History of hidradenitis Suppurativa Left Upper extremity: Not lessons noted Skin: No rashes, No breakdown, No significant lesion Neuro: Normal gait, Normal speech, Strength at 5/5 X4 ext, Normal tone, Sensation intact, Cranial nerves 3-12 NL, Reflexes 2+ Psych/Mental Status: Mental status NL, Mood NL laboratory and microbiology Laboratory Tests 04/16/24 05:24 Test 04/16/24 05:24 Range/Units Serum Glucose 113 H 74-106 mg/dL Problem List/Assessment/Plan Problem List/Assessment/Plan Right axillary hidradenitis suppurative Right inguinal area hidradenitis suppurative/intertrigo Possible right axillary cellulitis -->Chest CT from 04/09/2024 shows superficial wound in lateral thorax with associated fat stranding and foci of air -->Wound culture and check MRSA nares -->Wound consult -->Wound dressing -->Surgical consult -->Empiric antibiotic of Doxycycline Small bilateral pleural effusion --> Chest x-ray shows bilateral lung with small bilateral pleural effusion Small pericardial effusion -->Chest CT scan finding History of diabetes mellitus -->Hb A1c 5.9 -->Insulin mild SS Mild Hyponatremia -->Monitor closely History of schizophrenia -->Continue risperidone Mild anemia, microcytic hypochromic Iron panel Vitamin check vitamin B12 and folate Code status: full DIET: Diabetic diet Goal of care discussed for more than 35 minutes Case and plan discussed with Dr. Plaza Plan discussed with: Patient JAMEY ARELLANO RESIDENT Apr 16, 2024 11:40
[2024-04-16] MEDS: DOXYCYCLINE 100MG/100ML 100 ML IV SCH (11:55)
[2024-04-16] MEDS: HYDROcodone-ACET 7.5/325MG TAB PO PRN (15:02)
[2024-04-16 15:49] VITALS: BP 101/60; PULSE 87; RESP 18; TEMP 98.3; O2SAT 100
[2024-04-16] MEDS: BACLOFEN 10 MG TAB PO PRN (18:27)
[2024-04-17] MEDS ORDERED: risperiDONE 1 MG TAB PO SCH (10:00)
--- NOTE | 2024-04-17 18:50 | DVHDSRES ---
Discharge Summary Date of Admission Resident Creating Document: JAMEY ARELLANO RESIDENT Apr 15, 2024 at 23:54 Date of Discharge: Apr 16, 2024 Admitting Diagnosis Right axillary hidradenitis suppurative Right inguinal area hidradenitis suppurative/intertrigo Possible right axillary cellulitis Labs/Diagnostic Data: PATIENT: ELMER CARDOZO III IACCT: [id number] UNIT: [id number] : 1985 LOC: ER ROOM / BED: / AGE / SEX: 38 / M ADM STATUS: REG ER SERVICE 99 ORDERING PHYSICIAN: JASON SURESH MD PROCEDURE(s): CXR2 - CHEST TWO VIEWS ROUTINE REASON: weakness ORDER NUMBER(s): [id number], ACCESSION NUMBER(s): [id number] EXAM: XY CHEST TWO VIEWS ROUTINE CLINICAL HISTORY: weakness TECHNIQUE: Frontal and lateral views of the chest WID: COMPARISON: None FINDINGS: Lines and tubes: None Chest: The heart size and pulmonary vasculature is within normal limits. Blunting of the bilateral costophrenic angles, greater on the left . No pneumothorax or airspace consolidation. The osseous structures are grossly intact. IMPRESSION: Small bilateral pleural effusions. ATED BY: JOSE SMALLWOOD MD DICTATED DATE/TIME: 04/15/242224 PATIENT: ELMER CARDOZO III IACCT: [id number] UNIT: [id number] : 1985 LOC: OVERFLOW ROOM / BED: [facility] / A AGE / SEX: 38 / M ADM STATUS: ADM IN SERVICE 014 ORDERING PHYSICIAN: MERY PINEDO PROCEDURE(s): CX2CT - CHEST WITHOUT CONTRAST REASON: Cellulitis? ORDER NUMBER(s): [id number], ACCESSION NUMBER(s): [id number] Procedure: CT CHEST WITHOUT CONTRAST Reason for study/Clinical History: Cellulitis Comparison Study: Chest radiograph performed on 04/15/2024. CT scan of the chest dated 04/08/2024. Exam Date: 04/16/2024 05:40 AM TECHNIQUE: Multidetector CT of the chest was performed from the lung apices to the upper abdomen without the use of intravenous contract. Coronal and sagittal multiplanar reformats were performed. Radiation Dose Information: CT Dose: CTDI volume is 18.3 mGy. Dose-length product is 734.9 mGy*cm The dose indicators for CT are the volume Computed Tomography (CT) Dose Index (CTDIvol) and the Dose Length Product (DLP), and are measured in units of mGy and mGy-cm, respectively. These indicators are not patient dose, but values generated from the CT scanner acquisition factors. The report includes radiation exposure data for exposures received during this examination. FINDINGS: Lower neck: Normal thyroid. Lungs: Reticular nodular opacities in the right middle and lower lobe. Trachea and central airways: Patent. Pleura: No pneumothorax. Small bilateral pleural effusions. Heart/Vascular Structures: Normal heart size. Small pericardial effusion. Lymph Nodes: Increased number of left axillary lymph nodes measuring up to 7 mm in short axis. Musculoskeletal: No acute osseous abnormality. Soft tissues: Left chest wall skin thickening with small foci of air. No fluid collection. Upper abdomen: Limited portions of the upper abdomen are unremarkable. IMPRESSION: 1. Small bilateral pleural effusions. 2. Reticular nodular opacities in the right middle and lower lobe which may be infectious or inflammatory in etiology. 3. Small pericardial effusion. 4. Left chest wall skin thickening small foci of air which may reflect infection. Appearance is similar to recent chest CT from 04/08/2024. 5. Left axillary lymphadenopathy, probably reactive. Radiation optimization: All CT scans at this facility use at least one of these dose optimization techniques: automated exposure control mA and/or kV adjustment per patient size (includes targeted exams where dose is matched to clinical indication) or iterative reconstruction. ATED BY: MER NICHOLS MD DICTATED DATE/TIME: 04/16/24 0614 Laboratory Results Test 04/16/24 16:38 04/16/24 05:24 POC Glucose 96 mg/dl (70-106) White Blood Count 9.2 10^3/uL (4.4-10.8) Red Blood Count 4.32 10^6/uL (4.5-5.90) Hemoglobin 10.3 g/dL (13.5-17.5) Hematocrit 32.9 % (41.0-53.0) Mean Corpuscular Volume 76.1 fL (80.0-100.0) Mean Corpuscular Hemoglobin 23.7 pg (28.0-32.0) Mean Corpuscular Hemoglobin Concent 31.2 g/dL (32.0-36.0) Red Cell Distribution Width 22.9 % (11.8-14.3) Platelet Count 607 10^3/uL (140-450) Mean Platelet Volume 6.4 fL (6.9-10.8) Neutrophils (%) (Auto) 65.3 % (37.0-80.0) Lymphocytes (%) (Auto) 23.7 % (10.0-50.0) Monocytes (%) (Auto) 7.6 % (0.0-12.0) Eosinophils (%) (Auto) 2.8 % (0.0-7.0) Basophils (%) (Auto) 0.6 % (0.0-2.0) Neutrophils # (Auto) 6.0 10 ^3/uL (1.6-8.6) Lymphocytes # (Auto) 2.2 10 ^3/uL (0.4-5.4) Monocytes # (Auto) 0.7 10 ^3/uL (0-1.3) Eosinophils # (Auto) 0.3 10 ^3/uL (0-0.8) Basophils # (Auto) 0.1 10 ^3/uL (0-0.2) Nucleated Red Blood Cells 0.0 % Prothrombin Time 12.7 sec (9.3-11.8) Prothrombin Time INR 1.22 (0.9-1.15) Sodium Level 135 mmol/L (136-145) Potassium Level 4.0 mmol/L (3.5-5.1) Chloride Level 105 mmol/L (98-107) Carbon Dioxide Level 24 mmol/L (20-31) Anion Gap 6 (5-15) Blood Urea Nitrogen 15 mg/dL (9-23) Creatinine 0.78 mg/dL (0.700-1.30) Glomerular Filtration Rate Calc 116 mL/min (>90) BUN/Creatinine Ratio 19.2 (10.0-20.0) Serum Glucose 113 mg/dL (74-106) Hemoglobin A1c 5.9 % A1C (<5.7) Lactic Acid Level 0.9 mmol/L (0.4-2.0) Calcium Level 8.3 mg/dL (8.7-10.4) Iron Level 34 ug/dL (65-175) Total Iron Binding Capacity 260 ug/dL (250-425) Percent Iron Saturation 13.1 % (20-55) Ferritin 236.4 ng/mL (22-322) Total Bilirubin 0.3 mg/dL (0.2-1.0) Aspartate Amino Transferase (AST) < 8 U/L (13-40) Alanine Aminotransferase (ALT) < 9 U/L (7-40) Alkaline Phosphatase 77 U/L (46-116) Total Protein 8.8 g/dL (5.7-8.2) Albumin 3.5 g/dL (3.2-4.8) Vitamin B12 Level 327 pg/mL (211-911) Vitamin D 25-Hydroxy 26.7 ng/mL (30.0-100) Other Laboratory Tests 04/16/24 05:24 Brief Hx & Hospital Course: Hospital Course This is a 38-year-old male with past history of schizophrenia, depression, diabetes type 2, and hidradenitis suppurative came to the hospital due to generalized body pain and axillary wound evaluation. According to his brother, the patient has had this hidradenitis suppurative since he was 23 years and has been admitted to the hospital multiple times. He underwent surgery for hidradenitis suppurativa 9 months ago in [facility], but recently the wound has worsened. Per patient has been been compliant with antibiotic treatment. Patient lives in a facility down the [place], not know the exact name, where he receives jail, food and wound care. The patient has recently came to visit his brother who noticed that the wound has worsened and brought him to the ED. In the ED his vitals were temperature 98, pulse 134, blood pressure 98/59, and RR: 16. blood work did not show leukocytosis or evidence of an infection. Chest x-ray shows Small bilateral pleural effusions. CT of the chest: Small bilateral pleural effusions. Reticular nodular opacities in the right middle and lower lobe which may be infectious or inflammatory in etiology. Left chest wall skin thickening small foci of air which may reflect infection. Appearance is similar to recent chest CT from 04/08/2024.Left axillary lymphadenopathy, probably reactive. Patient was stared on antibiotics and seen by the wound care nurse. Surgery consult for evaluation but left AMA (against medical advise) on at 18:52. Diagnoses Right axillary hidradenitis suppurative Right inguinal area hidradenitis suppurative/intertrigo Possible right axillary cellulitis Small bilateral pleural effusion Small pericardial effusion History of diabetes mellitus Mild Hyponatremia History of schizophrenia Mild anemia, microcytic hypochromic Case was discussed with Dr. Plaza Consults/Reason for consult hidradenitis suppurative surgical wound Condition at Discharge: Unstable Final Diagnosis/Problems List Right axillary hidradenitis suppurative Right inguinal area hidradenitis suppurative/intertrigo Possible right axillary cellulitis Small bilateral pleural effusion Small pericardial effusion History of diabetes mellitus Mild Hyponatremia History of schizophrenia Mild anemia, microcytic hypochromic Discharge Disposition: AMA Discharge Statement: "Patient was advised to return to the ER or call 911 if any headaches, dizziness, shortness of breath, chest pain, abdominal pain, bleeding, fevers, or worsening of medical condition. Patient was counseled about treatment plan, medications, possible side effects, patientverbalized understanding. All questions were answered to the best of my ability. This discharge took greater then 30 minutes in planning, reviewing documentation, counseling the patient, and discussing with other team members." ASSESSMENT ASSESSMENT Assessment JAMEY ARELLANO RESIDENT Apr 17, 2024 18:50
== END 2024-04-16 18:45 | disposition left against medical advice (07) | DRG 603 ==
LOC: ER 19:41 → OVERFLOW 23:54
PROVIDERS: ADMIT Internal Medicine Geriatric Medicine; ATTEND Internal Medicine Geriatric Medicine
DX: L03.111 Cellulitis of right axilla (principal); I31.39 Other pericardial effusion (noninflammatory); J90 Pleural effusion, not elsewhere classified; E87.1 Hypo-osmolality and hyponatremia; L73.2 Hidradenitis suppurativa; F20.9 Schizophrenia, unspecified; F41.9 Anxiety disorder, unspecified; F32.A Depression, unspecified; Z53.29 Procedure and treatment not carried out because of patient's decision for other reasons; F17.210 Nicotine dependence, cigarettes, uncomplicated; E11.9 Type 2 diabetes mellitus without complications; D50.9 Iron deficiency anemia, unspecified; Z83.3 Family history of diabetes mellitus
CPT/HCPCS: 36415; 71046; 71250; 80053; 82306; 82607; 82728; 82962; 83036; 83540; 83550; 83605; 85025; 85610; 87040; G0378; J1815; J3490